=== PATIENT | male | born 1975 | race Caucasian/White ===

== ENCOUNTER 2021-11-28 13:41 | Inpatient (IN) | payer BC, MEDICAID, SELFPAY ==
[2021-11-28 13:44] VITALS: BP 176/116; PULSE 106; RESP 16; O2SAT 98; BMI 35.4
--- NOTE | 2021-11-28 14:06 | ECG_ITS ---
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 Measurements Intervals [place] Rate: 104 P: 32 WV: 152 QRS: 15 QRSD: 105 T: -43 QT: 335 QTc: 441 Interpretive Statements SINUS TACHYCARDIA POSSIBLE ANTERIOR MYOCARDIAL INFARCTION , OF INDETERMINATE AGE [30 ms Q WAVE IN V3/V4, OR R < 0.2 mV IN V4] INFERIOR MYOCARDIAL INFARCTION , OF INDETERMINATE AGE [40+ ms Q WAVE AND/OR ST/T ABNORMALITY IN II/aVF] No previous ECG available for comparison Electronically Signed On 11-28-2021 22:04:38 CDT by Calixto Arizmendi M.D. [id number]
--- NOTE | 2021-11-28 14:06 | XR_ITS ---
WS: [id number] Portable AP upright chest, 11/28/2021 Clinical Data: Hypertension Comparison: None. Findings: No nodules, masses or effusions are seen. The heart is normal. The pulmonary vascularity is not increased. No pneumonia or pneumothorax is seen. XR/XR chest 1V portable [id number] Impression: Negative chest.
--- NOTE | 2021-11-28 14:08 | W.ED.RECABL ---
Documented by User: TAMMY Peace 11/29/21 07:13 HPI - Recheck/Abnormal Lab/Rx General: Chief Complaint: Recheck/Abnormal Lab/Rx Stated Complaint: ABNORMAL EKG Time Seen by Provider: 11/28/21 13:57 History of Present Illness: Patient is a 46-year-old male comes to the ED via EMS for hypertension and abnormal EKG. patient has a past medical history of hypertension and COPD. He is not currently on any oxygen at home. Patient was sent here by his PCP today. He states that he went to get a checkup with his PCP on his COPD. PCP did an EKG on patient and it was an abnormal reading and they sent patient here. He endorses feeling a little bit of chest pressure a couple days ago but it has since resolved. Patient does not have any current chest pain, shortness of breath, nausea, vomiting, fevers. He denies any current symptoms at this time. Review of Systems Const: Denies: fever(s), chills or fatigue Eyes: Denies: change in vision or eye discomfort ENMT: Denies: throat pain, odynophagia, nasal discharge or nasal congestion Card: Denies: chest pain, palpitations, edema, swelling of feet/ankles, dyspnea on exertion or orthopnea Resp: Denies: dyspnea, productive cough or non-productive cough GI: Denies: abdominal pain, nausea, vomiting, diarrhea, constipation or hematochezia : Denies: flank pain, difficulty urinating, dysuria or hematuria Musc: Denies: neck pain, back pain or extremity swelling Skin/Breast: Denies: rash or new lesions Neuro: Denies: headache(s), numbness in extremities or weakness in extremities PFS ED PFSH: Medical History COPD (chronic obstructive pulmonary disease) Hypertension No pertinent family history Physical Exam Const: COMMON NORMALS: no acute distress, patient oriented x3 and alert HENMT: COMMON NORMALS: normocephalic HEAD & SCALP: normocephalic MOUTH: Normal oral and palatal mucosa present THROAT: posterior oropharynx normal and uvula midline Neck/C-Spine: COMMON NORMALS: supple GENERAL: Yes normal visual inspection Resp: COMMON NORMALS: normal respiratory effort, No retractions, No use of accessory muscles and clear to auscultation bilaterally AUSCULTATION: clear to auscultation bilaterally Cardio: COMMON NORMALS: regular rate, regular rhythm, S1 normal heart sound present, S2 normal heart sound present, No gallops present (Cardio), No clicks present (Cardio), No murmurs present (Cardio) and Peripheral pulses 2+ throughout RATE: regular rate RHYTHM: regular rhythm HEART SOUNDS: S1 normal heart sound present and S2 normal heart sound present PERIPHERAL PULSES: Peripheral pulses 2+ throughout GI: COMMON NORMALS: Normal to inspection, nondistended, normoactive bowel sounds present, Soft to palpation, non-tender and no masses PALPATION: Yes Soft to palpation : COMMON NORMALS: Yes no CVA tenderness BLADDER/KIDNEY EXAM: Yes no CVA tenderness Back/Pelvis: COMMON NORMALS: no CVA tenderness Extremity: COMMON NORMALS: normal to inspection Neuro: COMMON NORMALS: patient oriented x3 and moves all extremities SENSORIUM/ORIENTATION: Yes alert Skin: GENERAL SKIN EXAM: dry skin Course Vital Signs: Vital signs: Vital Signs Temperature 98.5 F 11/29/21 03:45 Pulse Rate 88 11/29/21 05:28 Respiratory Rate 14 11/29/21 03:45 Blood Pressure 113/72 11/29/21 03:45 Pulse Oximetry 95 11/29/21 03:45 MDM - Recheck/Abnormal Lab/Rx Lab Data I reviewed the patient's lab results. : 11/28/21 14:06 11/29/21 04:27 Radiology Impressions Chest X-Ray 11/28/21 14:06 Impression: Negative chest. Laboratory Results WBC 7.2 10^3/uL (4.0-10.0) 11/28/21 14:06 RBC 5.49 10^6/uL (4.1-5.3) H 11/28/21 14:06 Hgb 16.4 g/dL (11.7-16.6) 11/28/21 14:06 Hct 51.2 % (42.0-52.0) 11/28/21 14:06 MCV 93.3 fl (80-94) 11/28/21 14:06 MCH 29.9 pg (28.0-34.0) 11/28/21 14:06 MCHC 32.0 g/dL (30.0-36.0) 11/28/21 14:06 RDW 12.9 % (12.1-15.1) 11/28/21 14:06 Plt Count 211 10^3/cmm (130-400) 11/28/21 14:06 MPV 10.8 fL (7.4-10.4) H 11/28/21 14:06 Neut % (Auto) 59.4 % 11/28/21 14:06 Lymph % (Auto) 31.7 % 11/28/21 14:06 [place] % (Auto) 6.5 % 11/28/21 14:06 Eos % (Auto) 1.4 % 11/28/21 14:06 Baso % (Auto) 0.4 % 11/28/21 14:06 Neut # (Auto) 4.30 10^3/uL (1.8-7.7) 11/28/21 14:06 Lymph # (Auto) 2.3 10^3/uL (0.8-4.8) 11/28/21 14:06 [place] # (Auto) 0.5 10^3/uL (0.2-0.9) 11/28/21 14:06 Eos # (Auto) 0.1 10^3/uL (0.0-0.8) 11/28/21 14:06 Baso # (Auto) 0.0 10^3/uL (0.0-0.1) 11/28/21 14:06 Nucleated RBC % (auto) 0 % 11/28/21 14:06 Nucleated RBCs # 0.0 /100WBC 11/28/21 14:06 Sodium 134 mmol/L (136-145) L 11/28/21 15:59 Potassium 4.2 mmol/L (3.5-5.1) 11/28/21 15:59 Chloride 99 mmol/L (98-107) 11/28/21 15:59 Carbon Dioxide 21 mmol/L (22-29) L 11/28/21 15:59 Anion Gap 18.2 (5-19) 11/28/21 15:59 BUN 11 mg/dL (6-20) 11/28/21 15:59 Creatinine 0.7 mg/dL (0.7-1.2) 11/28/21 15:59 GFR Calculation 120.9 mL/min (90-130) 11/28/21 15:59 Glucose 272 mg/dL (65-115) H 11/28/21 15:59 Estimat Average Glucose 189 11/28/21 14:06 Hemoglobin A1c 8.2 % (4.0-6.0) H 11/28/21 14:06 Calculated Osmolality 287 mOsm/kg (285-295) 11/28/21 15:59 Calcium 8.5 mg/dL (8.5-10.5) 11/28/21 15:59 Total Bilirubin 0.6 mg/dL (0.15-1.2) 11/28/21 15:59 AST 40 U/L (0-40) 11/28/21 15:59 ALT 63 U/L (0-41) H 11/28/21 15:59 Alkaline Phosphatase 98 IU/L (40-130) 11/28/21 15:59 Troponin T Baseline 41 ng/L (0-15) H 11/28/21 15:59 Troponin T 120 Minute 45.11 ng/L (0-15) H 11/28/21 18:10 Delta Troponin T 4.11 ABS# (0-10) 11/28/21 18:10 Total Protein 7.1 g/dL (6.6-8.7) 11/28/21 15:59 Albumin 4.4 g/dL (3.5-5.2) 11/28/21 15:59 Globulin 2.7 g/dL (1.3-4.6) 11/28/21 15:59 Discharge Plan Discharge Patient Disposition: Admitted As Inpatient Admit Provider: Rossy Linda Clinical Impression: Abnormal ECG, Elevated troponin, Hypertension, Diabetes, COPD (chronic obstructive pulmonary disease), Obesity Condition: Stable Sign Out Sign Out Data: Patient Sign Out occurred on 11/28/21 at 17:18. Patient's care was discussed, and care was transferred from to TAMMY Limon. Coding Level of Care Code ED Senior Chemist for Chg Fwd Exam Comprehensive Documented by User: TAMMY Limon 11/28/21 20:14 HPI - Recheck/Abnormal Lab/Rx General: Chief Complaint: Recheck/Abnormal Lab/Rx Stated Complaint: ABNORMAL EKG Time Seen by Provider: 11/28/21 13:57 [facility] ED PFSH: Medical History COPD (chronic obstructive pulmonary disease) Hypertension No pertinent family history Course Vital Signs: Vital signs: Vital Signs Temperature 98.5 F 11/29/21 03:45 Pulse Rate 88 11/29/21 05:28 Respiratory Rate 14 11/29/21 03:45 Blood Pressure 113/72 11/29/21 03:45 Pulse Oximetry 95 11/29/21 03:45 MDM - Recheck/Abnormal Lab/Rx Medical Decision Making I assumed care for patient from Jake Talavera PA-C. Patient is a 46-year-old male who was initially seen at his PCP office for routine visit and COPD check. Patient was noted to have extremely elevated high blood pressure (190s/120s) in their office and did mention some vague chest heaviness that he had been having thus EKG was obtained and patient was told it was abnormal and he needed to come to the ED for further evaluation. Upon arrival patient's EKG shows inverted T waves in his inferior leads (no comparisons). He is not currently complaining of chest pain or shortness of breath nor has he complained of these throughout his visit. Family states he has complained of fatigue recently. Patient has no previous cardiac history. He does have risk factors of COPD, HTN, DM, obesity, smoker (quit 1 month ago). Has baseline troponin is 41. Repeat EKG still showing inverted T waves with no other changes when compared to EKG performed earlier. His 2-hour troponin is 45. Patient's heart score at this time is 7 thus I think he would benefit from hospitalization and cardiac rule out. I spoke to hospitalist Dr. Linda who will admit patient. Dr. Pacheco will place admit orders. Lab Data : 11/28/21 14:06 11/29/21 04:27 Radiology Impressions Chest X-Ray 11/28/21 14:06 Impression: Negative chest. Laboratory Results WBC 7.2 10^3/uL (4.0-10.0) 11/28/21 14:06 RBC 5.49 10^6/uL (4.1-5.3) H 11/28/21 14:06 Hgb 16.4 g/dL (11.7-16.6) 11/28/21 14:06 Hct 51.2 % (42.0-52.0) 11/28/21 14:06 MCV 93.3 fl (80-94) 11/28/21 14:06 MCH 29.9 pg (28.0-34.0) 11/28/21 14:06 MCHC 32.0 g/dL (30.0-36.0) 11/28/21 14:06 RDW 12.9 % (12.1-15.1) 11/28/21 14:06 Plt Count 211 10^3/cmm (130-400) 11/28/21 14:06 MPV 10.8 fL (7.4-10.4) H 11/28/21 14:06 Neut % (Auto) 59.4 % 11/28/21 14:06 Lymph % (Auto) 31.7 % 11/28/21 14:06 [place] % (Auto) 6.5 % 11/28/21 14:06 Eos % (Auto) 1.4 % 11/28/21 14:06 Baso % (Auto) 0.4 % 11/28/21 14:06 Neut # (Auto) 4.30 10^3/uL (1.8-7.7) 11/28/21 14:06 Lymph # (Auto) 2.3 10^3/uL (0.8-4.8) 11/28/21 14:06 [place] # (Auto) 0.5 10^3/uL (0.2-0.9) 11/28/21 14:06 Eos # (Auto) 0.1 10^3/uL (0.0-0.8) 11/28/21 14:06 Baso # (Auto) 0.0 10^3/uL (0.0-0.1) 11/28/21 14:06 Nucleated RBC % (auto) 0 % 11/28/21 14:06 Nucleated RBCs # 0.0 /100WBC 11/28/21 14:06 Sodium 134 mmol/L (136-145) L 11/28/21 15:59 Potassium 4.2 mmol/L (3.5-5.1) 11/28/21 15:59 Chloride 99 mmol/L (98-107) 11/28/21 15:59 Carbon Dioxide 21 mmol/L (22-29) L 11/28/21 15:59 Anion Gap 18.2 (5-19) 11/28/21 15:59 BUN 11 mg/dL (6-20) 11/28/21 15:59 Creatinine 0.7 mg/dL (0.7-1.2) 11/28/21 15:59 GFR Calculation 120.9 mL/min (90-130) 11/28/21 15:59 Glucose 272 mg/dL (65-115) H 11/28/21 15:59 Estimat Average Glucose 189 11/28/21 14:06 Hemoglobin A1c 8.2 % (4.0-6.0) H 11/28/21 14:06 Calculated Osmolality 287 mOsm/kg (285-295) 11/28/21 15:59 Calcium 8.5 mg/dL (8.5-10.5) 11/28/21 15:59 Total Bilirubin 0.6 mg/dL (0.15-1.2) 11/28/21 15:59 AST 40 U/L (0-40) 11/28/21 15:59 ALT 63 U/L (0-41) H 11/28/21 15:59 Alkaline Phosphatase 98 IU/L (40-130) 11/28/21 15:59 Troponin T Baseline 41 ng/L (0-15) H 11/28/21 15:59 Troponin T 120 Minute 45.11 ng/L (0-15) H 11/28/21 18:10 Delta Troponin T 4.11 ABS# (0-10) 11/28/21 18:10 Total Protein 7.1 g/dL (6.6-8.7) 11/28/21 15:59 Albumin 4.4 g/dL (3.5-5.2) 11/28/21 15:59 Globulin 2.7 g/dL (1.3-4.6) 11/28/21 15:59 Discharge Plan Discharge Patient Disposition: Admitted As Inpatient Admit Provider: Rossy Linda Clinical Impression: Abnormal ECG, Elevated troponin, Hypertension, Diabetes, COPD (chronic obstructive pulmonary disease), Obesity Condition: Stable Sign Out Sign Out Data: Patient Sign Out occurred on 11/28/21 at 17:18. Patient's care was discussed, and care was transferred from to TAMMY Limon. Coding Level of Care Code ED Senior Chemist for Chg Fwd Exam Comprehensive
[2021-11-28 14:24] LABS: Basophils % 0.4 %; Eosinophils # 0.1 10^3/uL (0.0-0.8); Eosinophils % 1.4 %; Hematocrit 51.2 % (42.0-52.0); Hemoglobin 16.4 g/dL (11.7-16.6); Lymphocytes # 2.3 10^3/uL (0.8-4.8); Lymphocytes % 31.7 %; Mean Corpuscular Hemoglobin 29.9 pg (28.0-34.0); Mean Corpuscular Volume 93.3 fl (80-94); Mean Platelet Volume 10.8 fL (7.4-10.4); Monocytes # 0.5 10^3/uL (0.2-0.9); Monocytes % 6.5 %; Neutrophils % 59.4 %; Nucleated Red Blood Cells % 0 %; Platelet Count 211 10^3/cmm (130-400); Red Blood Count 5.49 10^6/uL (4.1-5.3); Red Cell Distribution Width 12.9 % (12.1-15.1); White Blood Count 7.2 10^3/uL (4.0-10.0)
[2021-11-28 14:35] LABS: Slide Review Slide Review Perform
[2021-11-28 15:48] VITALS: BP 145/112; PULSE 97; RESP 18; O2SAT 96
--- NOTE | 2021-11-28 16:06 | ECG_ITS ---
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 Measurements Intervals [place] Rate: 97 P: 42 IN: 154 QRS: -4 QRSD: 107 T: -49 QT: 359 QTc: 457 Interpretive Statements SINUS RHYTHM POSSIBLE ANTERIOR MYOCARDIAL INFARCTION , OF INDETERMINATE AGE [30 ms Q WAVE IN V3/V4, OR R < 0.2 mV IN V4] INFERIOR MYOCARDIAL INFARCTION , OF INDETERMINATE AGE [40+ ms Q WAVE AND/OR ST/T ABNORMALITY IN II/aVF] MODERATE T-WAVE ABNORMALITY, CONSIDER LATERAL ISCHEMIA [-0.1+ mV T-WAVE IN I/aVL/V5/V6] Compared to ECG 11/28/2021 13:48:36 T-wave abnormality now present Possible ischemia now present Sinus tachycardia no longer present Myocardial infarct finding still present Electronically Signed On 11-28-2021 22:12:23 CDT by Calixto Arizmendi M.D. [id number]
[2021-11-28 16:27] LABS: Troponin(5th) Baseline 41 ng/L (0-15)
[2021-11-28 16:39] LABS: Alanine Aminotransferase 63 U/L (0-41); Albumin Level 4.4 g/dL (3.5-5.2); Alkaline Phosphatase 98 IU/L (40-130); Anion Gap 18.2 (5-19); Aspartate Amino Transferase 40 U/L (0-40); Blood Urea Nitrogen 11 mg/dL (6-20); Calcium 8.5 mg/dL (8.5-10.5); Carbon Dioxide 21 mmol/L (22-29); Chloride 99 mmol/L (98-107); Globulin 2.7 g/dL (1.3-4.6); Glomerular Filtration Rate 120.9 mL/min (90-130); Glucose 272 mg/dL (65-115); Osmolality Calculated 287 mOsm/kg (285-295); Potassium 4.2 mmol/L (3.5-5.1); Sodium 134 mmol/L (136-145); Total Bilirubin 0.6 mg/dL (0.15-1.2); Total Protein 7.1 g/dL (6.6-8.7)
[2021-11-28 18:36] LABS: Troponin 5 2HR 45.11 ng/L (0-15)
[2021-11-28 18:39] LABS: Troponin 5 2HR Delta 4.11 ABS# (0-10)
--- NOTE | 2021-11-28 20:06 | ECG_ITS ---
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 Measurements Intervals [place] Rate: P: MT: QRS: QRSD: T: QT: QTc: Interpretive Statements Sinus rhythm Unusual R wave progression, consider old anterior wall myocardial infarction Prior inferior wall ID. T wave changes laterally, consider lateral ischemia ATYPICAL ECG WARNING: DATA QUALITY MAY AFFECT INTERPRETATION Compared to ECG 11/28/2021 15:34:02 No change Electronically Signed On 11-30-2021 16:59:27 CDT by Mason Couch M.D. [id number]
[2021-11-28 21:17] VITALS: BP 132/94; PULSE 108; O2SAT 94
[2021-11-28 22:23] VITALS: BP 132/94; PULSE 105; RESP 18; O2SAT 95
--- NOTE | 2021-11-28 23:03 | P.HP_ITS ---
Providers/Chief Complaint Admitting Physician: Rossy Linda MD Primary Care Provider: JOHANA Stafford Chief Complaint: chest pain History of Present Illness Juan Hernandez is a 46 year old male with h/o HTN, NIDDM, COPD and tobacco use who was seen at clinic with chest pressure. Patient states his BP was high and he was told he had an abnormal EKG and sent to ED. Patient describes the pressure as substernal, lasting only a couple of minutes. No radiation. Associated with some dyspnea, however, states he also has dyspnea sometimes with exertion and has COPD. He is not clear about using his meds regularly and does not know names or doses. Patient evaluated in ED- no acute EKG changes- mild elevation of troponin. Patient is chest pain free. He denies prior h/o similar pressure in his chest. No known h/o CAD. Patient noted to have elevated BP and elevated blood sugars as well. He does not monitor his blood sugar. Does not take insulin. Patient denies orthopnea, PND. No leg swelling. Patient admitted for further monitoring and management Review of Systems General: Reports: 10 or more systems reviewed and unremarkable except in HPI and below Const: Denies: fever(s), chills, body aches, change in appetite, change in weight or diaphoresis ENMT: Denies: throat pain or hoarseness Card: Reports: chest pain (as noted in HPI) and dyspnea on exertion; Denies: palpitations or syncope Resp: Reports: dyspnea; Denies: productive cough, wheezing or hemoptysis GI: Denies: abdominal pain, nausea, vomiting or constipation : Denies: urinary frequency or urinary urgency Musc: Denies: joint pain, joint swelling or joint stiffness Skin/Breast: Denies: rash or pruritus Neuro: Denies: frequent falls or dizziness Psych: Reports: anxiety and depression Endo: Reports: tired all the time Nico/Lymph: Denies: easy bruising or enlarged lymph nodes Medications/Allergies Home Medications Medication Instructions Recorded Confirmed Last Taken Type acetaminophen 500 mg tablet 1,000 mg PO Q6H PRN 11/28/21 11/28/21 Unknown History albuterol sulfate 90 mcg/actuation 2 puff INHALATION Q4H PRN 11/28/21 11/28/21 Unknown History aerosol inhaler atorvastatin 40 mg tablet 40 mg PO QAM 11/28/21 11/28/2111/27/22 History cholecalciferol (vitamin D3) 125 10,000 unit PO DAILY 11/28/21 11/28/21 Unknown History mcg (5,000 unit) tablet (Vitamin D3) docusate sodium 100 mg capsule 100 mg PO DAILY 11/28/21 11/28/21 Unknown History (Stool Softener) fiber 3 cap PO DAILY 11/28/21 11/28/21 Unknown History glipizide 10 mg tablet 10 mg PO BID 11/28/21 11/28/21 11/27/21 History lisinopril 20 mg tablet 20 mg PO QAM 11/28/21 11/28/21 11/27/21 History metformin 1,000 mg tablet 1,000 mg PO BID 11/28/21 11/28/21 11/27/21 History Allergies Allergy/AdvReac Type Severity Reaction Status Date / Time No Known Allergies Allergy Verified 11/28/21 14:58 PFSH Acute 2 PFSH: Medical History COPD (chronic obstructive pulmonary disease) Hypertension No pertinent family history Vitals/I&O/Wt Last Vital Signs Pulse 105 H 11/28/21 22:23 Resp 18 11/28/21 22:23 BP 132/94 11/28/21 22:23 Pulse Ox 95 11/28/21 22:23 Weight last 48 hrs Weight 112.037 kg Physical Exam Const: GENERAL APPEARANCE: cooperative, comfortable and well developed; not in distress HENMT: HEAD & SCALP: normal to inspection, normocephalic and atraumatic Neck/C-Spine: GENERAL: Yes normal visual inspection, Yes trachea midline and No anterior neck swelling Chest: CHEST: Yes Symmetrical chest wall rise and No tenderness Resp: EFFORT & INSPECTION: Yes able to speak in complete sentences, Yes symmetric chest movement, No respiratory distress and No audible wheezes Cardio: RATE: regular rate RHYTHM: regular rhythm GI: INSPECTION: Yes normal to inspection PALPATION: Yes Soft to palpation and No Tenderness to palpation present (GI) Extremity: GENERAL: Yes normal exam except as noted, No calf tenderness, No clubbing and No edema Neuro: SENSORIUM/ORIENTATION: Yes alert, Yes oriented to person, Yes oriented to place and Yes oriented to time CRANIAL NERVES: Yes CN normal except as noted SPEECH: speech normal GAIT: Yes Normal gait present MOTOR EXAM: 5 motor strength present throughout, no tremor noted, Normal motor muscle tone present throughout and Motor abnormalities not present Psych: APPEARANCE: Yes grossly normal ATTITUDE: Yes calm ACTIVITY/MOTOR BEHAVIOR: Yes appropriate eye contact SPEECH: Yes normal speech Skin: GENERAL SKIN EXAM: rashes and/or lesions noted and decreased turgor Data : 11/28/21 14:06 11/28/21 15:59 A&P Assessment and plan (1) Chest pain: Patient presents with brief non sustained chest pressure. Risk factors for CAD include obesity, uncontrolled HTN and diabetes, male and tobacco use. Baseline troponin 41, 2 hour troponin 45 with delta of 4.11 EKG with non specific inferior changes, no acute ST elevation/changes. Currently in no distress, no complaints of chest pain, appears to be atypical Telemetry ECHO Aspirin Status: Acute (2) Uncontrolled hypertension: Resume lisinopril May need to add second BP med if continues to be elevated Status: Acute (3) Diabetes: Blood sugar 272 on arrival. Hold glipizide and metformin Diabetic diet, SSI A1C Status: Acute (4) COPD (chronic obstructive pulmonary disease): Uses albuterol inhaler prn. On RA Status: Acute Attestations Medical Necessity Statement*: Patient with risk factors for CAD with h/o HTN, DM and tobacco use placed in observation for further monitoring and management Coding Level of Care Code Acute Missile Inspector Preflight for Dominickg Fwd History Expanded Problem Focused Exam Expanded Problem Focused Medical Decision Making Moderate Complexity Diagnoses Chest pain R07.9 Uncontrolled hypertension I10 Diabetes E11.9 COPD (chronic obstructive pulmonary disease) J44.9
[2021-11-28 23:33] VITALS: BP 154/104; PULSE 103; RESP 22; TEMP 36.6; O2SAT 95
[2021-11-28 23:34] VITALS: PULSE 103
[2021-11-29] VITALS (8 sets, daily range): BP systolic 113–143; BP diastolic 72–97; PULSE 88–104; RESP 14–18; TEMP 36.4–36.9; O2SAT 94–96
[2021-11-29] MEDS: aspirin 81 mg EC Tablet PO ×2 (00:20→08:00)
[2021-11-29 05:38] LABS: Alanine Aminotransferase 65 U/L (0-41); Albumin Level 4.3 g/dL (3.5-5.2); Alkaline Phosphatase 96 IU/L (40-130); Blood Urea Nitrogen 12 mg/dL (6-20); Carbon Dioxide 23 mmol/L (22-29); Chloride 98 mmol/L (98-107); Globulin 2.3 g/dL (1.3-4.6); Glomerular Filtration Rate 103.6 mL/min (90-130); Glucose 310 mg/dL (65-115); Osmolality Calculated 288 mOsm/kg (285-295); Sodium 133 mmol/L (136-145); Total Bilirubin 0.5 mg/dL (0.15-1.2); Total Protein 6.6 g/dL (6.6-8.7)
[2021-11-29 05:39] LABS: Chol HDL Ratio 4.79 mg/dL (1.0-5.00); Cholesterol 134 mg/dL (0-200); HDL Cholesterol 28 mg/dL (60-100); LDL Cholesterol Calculated 59 mg/dL (50-129); LDL HDL Ratio 2.11 RATIO (0.00-3.22); Triglycerides 233 mg/dL (0-150)
[2021-11-29 05:50] LABS: Anion Gap 16.7 (5-19); Aspartate Amino Transferase 54 U/L (0-40); Potassium 4.7 mmol/L (3.5-5.1)
[2021-11-29] MEDS: atorvastatin 40 mg Tablet PO (06:04)
[2021-11-29] MEDS: lisinopril 20 mg Tablet PO (06:04)
[2021-11-29 06:52] LABS: Glucose Point of Care 293 mg/dL (70-110)
[2021-11-29 06:58] LABS: Estmated Average Glucose 189; Hemoglobin A1C 8.2 % (4.0-6.0)
[2021-11-29] MEDS: insulin lispro 100 unit/1 mL SUBCUT ×3 (07:56→18:03)
[2021-11-29] MEDS: nicotine 21 mg Patch 1 PATCH TRANSDERMA (08:00)
[2021-11-29] MEDS: docusate sodium 100 mg Capsule PO (08:00)
[2021-11-29] MEDS: famotidine 20 mg Tablet PO ×2 (08:00→18:04)
--- NOTE | 2021-11-29 08:43 | CT_ITS ---
WS: [id number] CT LUMBAR SPINE, noncontrast. HISTORY: LOWER BACK PAIN TECHNIQUE: Contiguous 2.5 mm axial imaging are performed. Sagittal and coronal reformats are submitte d and reviewed. [facility] CT [email or web address] at least one of these dose optimization techni ques: automated exposure control; mA and/or kV adjustment per patient size (includes targeted exams w here dose is matched to clinical indication); or iterative reconstruction. IV contrast: None DLP: 2547.31 mGy.cm COMPARISON: None available. Posterior lumbar alignment is normal. No fractures. No pars defects. There is a large osteophyte exte nding posteriorly between L5 and S1. Transverse processes are intact. No destructive bone lesion. Deion y mild sclerosis and degenerative changes at the SI joints. Mild aorta atherosclerotic calcification. L1-2: Mild diffuse disc bulging without a focal protrusion or stenosis. L2-3: Mild annular disc bulging without focal protrusion or stenosis. L3-4: Mild annular disc bulging. Very mild asymmetry in the LEFT foramen. Suspect there is probably a cyst very small LEFT foraminal disc protrusion but there is no contact on the nerve roots. Mild face t arthritis. L4-5: Very mild annular disc bulging with mild encroachment upon the ventral thecal sac. Very shallow central disc protrusion without displacement of the nerve roots. Mild bilateral facet arthritis. No high-grade stenosis. Very slight encroachment into the subarticular recesses. L5-S1: There is a large curvilinear osteophyte extending posteriorly between L5 and S1. This dense ca lcified osteophyte is encroaching upon the ventral thecal sac and deforming the thecal sac. Osteophyt e is abutting the S1 nerve roots and displacing the nerve roots posteriorly into the lateral recesses . There is encroachment into the proximal neural foramen, LEFT greater than RIGHT. There is significa nt central, bilateral subarticular recess and mild foraminal stenosis. The dense osteophyte extends 2 .5 cm transversely and posteriorly by 1.1 cm. Vacuum disc phenomenon and mild narrowing at L5-S1. CT/CT lumbar spine wo con* [id number] IMPRESSION: 1. There is a large dense osteophyte extending posteriorly between L5 and S1 m easuring 2.5 cm transversely and extending posteriorly by 1.1 cm. This dense os teophyte contacts the thecal sac and displaces the S1 nerve roots bilaterally. Osteophytic burden extends into the proximal neural foramen. There is also mild bilateral foraminal stenosis. 2. Moderate degenerative disc disease at L5-S1.
--- NOTE | 2021-11-29 09:26 | PM.CONSULT ---
Providers/Reason For Consult Consulting Physician/Specialty*: Dr. Downey, Cardiology Reason for Consult*: Chest pain Attending Physician: Dheeraj Bains MD Primary Care Provider: JOHANA Stafford History of Present Illness History of Present Illness Juan Hernandez is a 46 year old male Review of Systems General: Reports: 10 or more systems reviewed and unremarkable except in HPI and below Const: Denies: fever(s), chills, body aches, change in appetite, change in weight or diaphoresis ENMT: Denies: throat pain or hoarseness Card: Reports: chest pain (as noted in HPI) and dyspnea on exertion; Denies: palpitations or syncope Resp: Reports: dyspnea; Denies: productive cough, wheezing or hemoptysis GI: Denies: abdominal pain, nausea, vomiting or constipation : Denies: urinary frequency or urinary urgency Musc: Denies: joint pain, joint swelling or joint stiffness Skin/Breast: Denies: rash or pruritus Neuro: Denies: frequent falls or dizziness Psych: Reports: anxiety and depression Endo: Reports: tired all the time Nico/Lymph: Denies: easy bruising or enlarged lymph nodes Medications/Allergies Home Medications Medication Instructions Recorded Confirmed Last Taken Type acetaminophen 500 mg tablet 1,000 mg PO Q6H PRN 11/28/21 11/28/21 Unknown History albuterol sulfate 90 mcg/actuation 2 puff INHALATION Q4H PRN 11/28/21 11/28/21 Unknown History aerosol inhaler atorvastatin 40 mg tablet 40 mg PO QAM 11/28/21 11/28/21 11/27/21 History cholecalciferol (vitamin D3) 125 10,000 unit PO DAILY 11/28/21 11/28/21 Unknown History mcg (5,000 unit) tablet (Vitamin D3) docusate sodium 100 mg capsule 100 mg PO DAILY 11/28/21 11/28/21 Unknown History (Stool Softener) fiber 3 cap PO DAILY 11/28/21 11/28/21 Unknown History glipizide 10 mg tablet 10 mg PO BID 11/28/21 11/28/21 11/27/21 History lisinopril 20 mg tablet 20 mg PO QAM 11/28/21 11/28/21 11/27/21 History metformin 1,000 mg tablet 1,000 mg PO BID 11/28/21 11/28/21 11/27/21 History Allergies Allergy/AdvReac Type Severity Reaction Status Date / Time No Known Allergies Allergy Verified 11/28/21 14:58 Current Medications Generic Name Dose Route Start Last Admin Trade Name Lauri PRN Reason Stop Dose Admin Aspirin 81 mg 11/29/21 09:00 11/29/21 08:00 Aspirin 81 Mg Ec Tablet PO 81 mg DAILY GUS Administration Atorvastatin Calcium 40 mg 11/29/21 06:00 11/29/21 06:04 Atorvastatin 40 Mg Tablet PO 40 mg QAM GUS Administration Docusate Sodium 100 mg 11/29/21 09:00 11/29/21 08:00 Docusate Sodium 100 Mg Capsule PO 100 mg DAILY GUS Administration Enoxaparin Sodium 40 mg 11/28/21 21:45 11/29/21 00:18 Enoxaparin 40 Mg/0.4 Ml Syringe SUBCUT Not Given Q24H GUS Famotidine 20 mg 11/29/21 09:00 11/29/21 08:00 Famotidine 20 Mg Tablet PO 20 mg BID GUS Administration Insulin Human Lispro 0 unit 11/29/21 08:00 11/29/21 07:56 Insulin Lispro 100 Unit/1 Ml SUBCUT 10 unit TIDWM GUS Administration Protocol Lisinopril 20 mg 11/29/21 06:00 11/29/21 06:04 Lisinopril 20 Mg Tablet PO 20 mg QAM GUS Administration Nicotine 1 patch 11/29/21 09:00 11/29/21 08:00 Nicotine 21 Mg Patch TRANSDERMA 1 patch DAILY GUS Administration PFSH Acute PFSH: Medical History COPD (chronic obstructive pulmonary disease) Hypertension No pertinent family history Vitals/I&O/Wt Last Vital Signs Temp 97.6 F 11/29/21 08:16 Pulse 94 11/29/21 08:16 Resp 18 11/29/21 08:16 BP 139/97 11/29/21 08:16 Pulse Ox 95 11/29/21 08:16 11/28/21 11/29/21 11/29/21 22:59 06:59 14:59 Intake Total 480 / 480 10 / 10 Balance 480 / 480 10 / 10 Weight last 48 hrs Weight 247 lb Physical Exam Narrative: GENERAL: Averagely built and averagely nourished in no acute distress HEENT: Extraocular movement intact. Pupils equal round reactive to light. No pallor or icterus. NECK: central trachea, [] JVD, [] abdominojugular reflex. No carotid bruit. CARDIOVASCULAR SYSTEM: S1-S2 regular. No S3 or S4 present. [No murmur rubs or gallops.] RESPIRATORY SYSTEM: Chest clear to auscultation. No wheezes rhonchi or rubs heard. [] No use of accessory muscles. ABDOMEN: Soft, nontender and nondistended. Normal bowel sounds present. No hepatosplenomegaly appreciated. [] EXTREMITIES: No cyanosis or clubbing. [No edema]. No signs of chronic venous insufficiency. 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 No focal neurological deficits. Cranial nerves intact. [] SKIN: Normal turgor and temperature. No breakdown, rash or nail changes noted. [] PSYCH: Normal insight and judgment. No suicidal or homicidal ideations. Data : 11/28/21 14:06 11/29/21 04:27 Other Labs: Baseline troponin T 41 at 2 hours 45 minutes 6 hours 40. Lipid panel with total cholesterol 134, triglyceride 233, LDL 59, HDL 28 Hemoglobin A1c 8.2. Other data: EKG showed sinus rhythm, normal axis. Q waves and T wave inversions lead noted in lead II, 3, aVF.T wave inversion in V4 to V6. Poor anterior R wave progression. Inferior NC of indeterminate age. T wave abnormality consider lateral ischemia. Chest x-ray with no acute cardiopulmonary abnormality. A&P Assessment and plan (1) Chest pain: Status: Acute (2) Hypertension: Status: Acute (3) Diabetes: On oral hypoglycemics metformin and glipizide at home. Hemoglobin A1c 8.2. 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
[2021-11-29 11:02] LABS: Glucose Point of Care 291 mg/dL (70-110)
--- NOTE | 2021-11-29 11:17 | P.PN_ITS ---
Subjective Subjective: Patient was seen and examined this morning, he was complaining of pressure-like chest pain, which lasted around 5 to 10 seconds, yesterday, he has also complaining of shortness of breath, which he thinks could be related to his longstanding chronic smoking history, patient is also complaining of significant lower back pain Particularly on standing for prolonged time, relieved by bending forward. Denies any other complaint. Medications: Medication Review Details: Generic Name Dose Route Start Last Admin Trade Name Lauri PRN Reason Stop Dose Admin Aspirin 81 mg 11/29/21 09:00 11/29/21 08:00 Aspirin 81 Mg Ec Tablet PO 81 mg DAILY GUS Administration Atorvastatin Calci um 40 mg 11/29/21 06:00 11/29/21 06:04 Atorvastatin 40 Mg Tablet PO 40 mg QAM GUS Administration Docusate Sodium 100 mg 11/29/21 09:00 11/29/21 08:00 Docusate Sodium 100 Mg Capsule PO 100 mg DAILY GUS Administration Enoxaparin Sodium 40 mg 11/28/21 21:45 11/29/21 00:18 Enoxaparin 40 Mg /0.4 Ml Syringe SUBCUT Not Given Q24H GUS Famotidine 20 mg 11/29/21 09:00 11/29/21 08:00 Famotidine 20 Mg Tablet PO 20 mg BID GUS Administration Insulin Human Lisp ro 0 unit 11/29/21 08:00 11/29/21 07:56 Insulin Lispro 1 00 Unit/1 Ml SUBCUT 10 unit TIDWM GUS Administration Protocol Lisinopril 20 mg 11/29/21 06:00 11/29/21 06:04 Lisinopril 20 Mg Tablet PO 20 mg QAM GUS Administration Nicotine 1 patch 11/29/21 09:00 11/29/21 08:00 Nicotine 21 Mg P atch TRANSDERMA 1 patch DAILY GUS Administration Vitals/I&O/Wt Last Vital Signs Temp 97.6 F 11/29/21 08:16 Pulse 94 11/29/21 08:16 Resp 18 11/29/21 08:16 BP 139/97 11/29/21 08:16 Pulse Ox 95 11/29/21 08:16 11/28/21 11/29/21 11/29/21 22:59 06:59 14:59 Intake Total 480 / 480 10 / 10 Balance 480 / 480 10 / 10 Weight last 48 hrs Weight 112.037 kg Physical Exam Const: COMMON NORMALS: patient oriented x3 HENMT: COMMON NORMALS: normocephalic and atraumatic HEAD & SCALP: normocephalic and atraumatic Chest: CHEST: Yes Symmetrical chest wall rise Resp: COMMON NORMALS: normal respiratory effort and clear to auscultation bilaterally EFFORT & INSPECTION: Yes symmetric chest movement AUSCULTATION: clear to auscultation bilaterally Cardio: COMMON NORMALS: regular rate, regular rhythm, S1 normal heart sound present, S2 normal heart sound present, No gallops present (Cardio), No murmurs present (Cardio), No rub (Cardio) and Peripheral pulses 2+ throughout RATE: regular rate RHYTHM: regular rhythm HEART SOUNDS: S1 normal heart sound present and S2 normal heart sound present PERIPHERAL PULSES: Peripheral pulses 2+ throughout GI: COMMON NORMALS: Normal to inspection, nondistended, normoactive bowel sounds present, Soft to palpation, non-tender, No hepatosplenomegaly present and no masses AUSCULTATION: Yes normoactive bowel sounds PALPATION: Yes Soft to palpation and Yes No hepatosplenomegaly present RECTAL EXAM: Yes deferred Extremity: COMMON NORMALS: no clubbing, cyanosis or edema and no pedal edema Neuro: COMMON NORMALS: patient oriented x3 Data : 11/28/21 14:06 11/29/21 04:27 A&P Assessment and plan (1) Chest pain: Status: Acute (2) Uncontrolled hypertension: Status: Acute (3) Diabetes: Status: Acute (4) COPD (chronic obstructive pulmonary disease): Uses albuterol inhaler prn. On RA Status: Acute Plan 46-year-old male with past medical history of hypertension diabetes, dyslipidemia, chronic smoking (2 pack a day for close to 35 years, obesity came in with chief complaint of chest tightness, and elevated blood pressure. Assessment: Typical cardiac chest pain: Risk factors include hypertension diabetes, dyslipidemia, chronic smoking (2 pack a day for close to 35 years) Obesity. Troponin trend: 41, 45 , 40 EKG: Sinus tachycardia. Q waves and T wave inversions lead noted in lead II, 3, aVF.T wave inversion in V4 to V6.? Poor anterior R wave progression.? Inferior FL of indeterminate age.? T wave abnormality consider lateral ischemia. 2D echo: Normal LV cavity size, moderately decreased LV systolic function, LVEF at 40%, moderate global LV hypokinesis, Grade 2 diastolic dysfunction. Lipid profile:T , total cholesterol 134, LDL 59, HDL 28 Continue aspirin and statin #Diabetes: Hemoglobin A1c He is on metformin and glipizide at home (currently on hold in hospital) Lantus 10 units subcu daily SSI FSG Carb consistent diet #Hypertension: On lisinopril #Lower back pain:; CT lumbar spine without contrast: large dense osteophyte extending posteriorly between L5 and S1 measuring 2.5 cm transversely and extending posteriorly by 1.1 cm. This dense osteophyte contacts the thecal sac and displaces the S1 nerve roots bilaterally. Osteophytic burden extends into the proximal neural foramen. There is also mild bilateral foraminal stenosis. Moderate degenerative disc disease at L5-S1. Orthopedic on board: Currently conservative management physical therapy, pain management.Outpatient follow-up. Attestations Medical Necessity Statement*: Patient needs to be in hospital for chest pain management awaiting cardiac cath. Time Spent in Patient Care: Greater than 35 minutes (>than 50% of time spent in counselling and/or direct pt care on unit) . 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
--- NOTE | 2021-11-29 11:22 | PC.NURSE ---
Pt and family are present and are wanting to know the results of the tests the pt has undergone today. Dr. Bains was made aware of family request via [employer].
[2021-11-29] MEDS: acetaminophen 500 mg Tablet 1000 MG PO (12:47)
--- NOTE | 2021-11-29 14:00 | USCV_ITS ---
Juan Hernandez Age: 46 Gender: M : 1975 Exam Date: 11/29/2021 01:45 Ordering Phys: Rossy Linda MD Technologist: AGNES Exam Location: [facility] Indication: CHEST PAIN BP: / HR: 92 Rhythm: Sinus Technical Quality: Adequate MEASUREMENTS (Male / Female) Normal Values 2D ECHO LV Diastolic Diameter PLAX 5.9 cm 4.2 - 5.9 / 3.9 - 5.3 cm LV Systolic Diameter PLAX 5.1 cm IVS Diastolic Thickness 0.9 cm 0.6 - 1.0 / 0.6 - 0.9 cm IVS Systolic Thickness 1.6 cm LVPW Diastolic Thickness 1.3 cm 0.6 - 1.0 / 0.6 - 0.9 cm LVPW Systolic Thickness 1.1 cm LVOT Diameter 2.8 cm LV Ejection Fraction 2D Teich 28.2 % LV Ejection Fraction MOD 2C 37.4 % LV Ejection Fraction 2C AL 35.7 % LA Diameter 3.6 cm LA Width 3.0 cm LA Height 6.1 cm RA Width 3.4 cm RA Height 3.5 cm Aorta at Sinotubular Diameter 2.6 cm M-MODE Aortic Annulus Diameter 2.4 cm LA Ao Ratio MM 1.4 MV E Point Septal Separation 2.7 cm DOPPLER AV Peak Velocity 105.3 cm/s LVOT Peak Velocity 57.0 cm/s AV Area Cont Eq vti 3.8 cm squared AV Area Cont Eq pk 3.4 cm squared MV Peak Velocity 74.0 cm/s MV Area PHT 5.0 cm squared Mitral E to A Ratio 0.9 MV E' Velocity 61.0 cm/s Mitral E to LV E' Septal Ratio 8.9 TR Peak Velocity 64.4 cm/s TR Peak Gradient 1.7 mmHg TR Mean Velocity 45.0 cm/s TR Mean Gradient 0.9 mmHg TR Velocity Time Integral 12.0 cm Right Atrial Pressure 10.0 mmHg Pulmonary Artery Systolic Pressu 11.7 mmHg PV Peak Velocity 97.0 cm/s RV Acceleration Time 0.1 s RV Ejection Time 0.3 s RV AcT/ET 0.4 FINDINGS Left Ventricle Normal left ventricular cavity size. Moderately decreased left ventricular systolic function. Left ventricular ejection fraction is estimated at 40 %. Moderate global left ventricular hypokinesis. Grade II diastolic dysfunction, moderately elevated filling pressures. No evidence of left ventricular apical thrombus. Right Ventricle Normal right ventricular size and systolic function. RVSP could not be calculated due to incomplete tricuspid regurgitation velocity profile. Right Atrium Normal right atrial size. Left Atrium Mildly increased left atrial size. Mitral Valve Mildly thickened mitral valve. Trace mitral valve regurgitation. Aortic Valve Aortic valve not well visualized. Probably tricuspid aortic valve. No aortic valve stenosis. No aortic valve regurgitation. Tricuspid Valve Structurally normal tricuspid valve. No tricuspid valve regurgitation. Pulmonic Valve Pulmonic valve not well visualized. No pulmonary valve stenosis. Trace pulmonary valve regurgitation. Pericardium No pericardial effusion. Aorta Normal size aortic root and proximal ascending aorta. CONCLUSIONS 1. Normal left ventricular cavity size. Moderately decreased left ventricular systolic function. Left ventricular ejection fraction is estimated at 40 %. Moderate global left ventricular hypokinesis. Grade II diastolic dysfunction, moderately elevated filling pressures. No evidence of left ventricular apical thrombus. 2. Mildly increased left atrial size. 3. No prior similar studies to compare. Cheryl Downey MD (Electronically Signed) Final Date: 29 November 2021 18:02 S
[2021-11-29] MEDS: perflutren protein-a microsphr 0.22 mg/mL SDV 3 mL IV (14:05)
--- NOTE | 2021-11-29 17:03 | PM.CONSULT ---
Providers/Reason For Consult Consulting Physician/Specialty*: Orthopedic spine Reason for Consult*: Back pain with leg weakness Attending Physician: Dheeraj Bains MD Primary Care Provider: JOHANA Stafford History of Present Illness History of Present Illness Juan Hernandez is a 46 year old male who was admitted to [facility] for cardiac work-up and medical management. Orthopedic spine was consulted due to increased back and leg pain. Patient describes progressive worsening of his low back and leg weakness over the last 6 months. 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 He describes 70% low back pain with 30% leg pain with both legs being equal. He states he can only walk a short distance of approximately 5o/100 feet before he has to sit down because of the pain /weakness. Prolonged standing bending twisting activities make his back much worse. Rest is only thing that gives him some temporary relief. He describes spasming pain in his legs with movement. He denies any loss of bowel or bladder control. He has not been through any physical therapy or injections at the pain clinic. He ranks the pain as 7-8 out of 10 on the pain scale at its worst. An extensive review of the patient's past medical history, surgical history, allergies, medications, family history, social history, and review of systems was completed Review of Systems General: Reports: 10 or more systems reviewed and unremarkable except in HPI and below Const: Denies: fever(s), chills, body aches, change in appetite, change in weight or diaphoresis ENMT: Denies: throat pain or hoarseness Card: Reports: chest pain (as noted in HPI) and dyspnea on exertion; Denies: palpitations or syncope Resp: Reports: dyspnea; Denies: productive cough, wheezing or hemoptysis GI: Denies: abdominal pain, nausea, vomiting or constipation : Denies: urinary frequency or urinary urgency Musc: Denies: joint pain, joint swelling or joint stiffness Skin/Breast: Denies: rash or pruritus Neuro: Denies: frequent falls or dizziness Psych: Reports: anxiety and depression Endo: Reports: tired all the time Nico/Lymph: Denies: easy bruising or enlarged lymph nodes Medications/Allergies Home Medications Medication Instructions Recorded Confirmed Last Taken Type acetaminophen 500 mg tablet 1,000 mg PO Q6H PRN 11/28/21 11/28/21 Unknown History albuterol sulfate 90 mcg/actuation 2 puff INHALATION Q4H PRN 11/28/21 11/28/21 Unknown History aerosol inhaler atorvastatin 40 mg tablet 40 mg PO QAM 11/28/21 11/28/21 11/27/21 History cholecalciferol (vitamin D3) 125 10,000 unit PO DAILY 11/28/21 11/28/21 Unknown History mcg (5,000 unit) tablet (Vitamin D3) docusate sodium 100 mg capsule 100 mg PO DAILY 11/28/21 11/28/21 Unknown History (Stool Softener) fiber 3 cap PO DAILY 11/28/21 11/28/21 Unknown History glipizide 10 mg tablet 10 mg PO BID 11/28/21 11/28/21 11/27/21 History lisinopril 20 mg tablet 20 mg PO QAM 11/28/21 11/28/21 11/27/21 History metformin 1,000 mg tablet 1,000 mg PO BID 11/28/21 11/28/21 11/27/21 History Allergies Allergy/AdvReac Type Severity Reaction Status Date / Time No Known Allergies Allergy Verified 11/28/21 14:58 Current Medications Generic Name Dose Route Start Last Admin Trade Name Freq PRN Reason Stop Dose Admin Acetaminophen 1,000 mg 11/28/21 21:42 11/29/21 12:47 Acetaminophen 500 Mg Tablet PO 1,000 mg Q6H PRN Administration Pain Aspirin 81 mg 11/29/21 09:00 11/29/21 08:00 Aspirin 81 Mg Ec Tablet PO 81 mg DAILY GUS Administration Atorvastatin Calcium 40 mg 11/29/21 06:00 11/29/21 06:04 Atorvastatin 40 Mg Tablet PO 40 mg QAM GUS Administration Docusate Sodium 100 mg 11/29/21 09:00 11/29/21 08:00 Docusate Sodium 100 Mg Capsule PO 100 mg DAILY GUS Administration Enoxaparin Sodium 40 mg 11/28/21 21:45 11/29/21 00:18 Enoxaparin 40 Mg/0.4 Ml Syringe SUBCUT Not Given Q24H GUS Famotidine 20 mg 11/29/21 09:00 11/29/21 08:00 Famotidine 20 Mg Tablet PO 20 mg BID GUS Administration Insulin Human Lispro 0 unit 11/29/21 08:00 11/29/21 12:43 Insulin Lispro 100 Unit/1 Ml SUBCUT 10 unit TIDWM GUS Administration Protocol Lisinopril 20 mg 11/29/21 06:00 11/29/21 06:04 Lisinopril 20 Mg Tablet PO 20 mg QAM GUS Administration Nicotine 1 patch 11/29/21 09:00 11/29/21 08:00 Nicotine 21 Mg Patch TRANSDERMA 1 patch DAILY GUS Administration PFSH Acute PFSH: Medical History COPD (chronic obstructive pulmonary disease) Hypertension No pertinent family history Vitals/I&O/Wt Last Vital Signs Temp 97.5 F L 11/29/21 15:26 Pulse 92 11/29/21 15:26 Resp 18 11/29/21 15:26 BP 126/88 11/29/21 15:26 Pulse Ox 95 11/29/21 15:26 11/29/21 11/29/21 11/29/21 06:59 14:59 22:59 Intake Total 480 / 480 130 / 130 Balance 480 / 480 130 / 130 Weight last 48 hrs Weight 247 lb Physical Exam Narrative: Patient presents with slow antalgic l gait. Demonstrates raising up onto heels and toes with difficulty. Exhibits normal coordination and normal stability. Moderate palpatory or percussion pain throughout the paraspinous musculature of the thoracolumbar spine. No obvious curvature in the forward bend test. No obvious muscle wasting. Examination reveals normal alignment, decreased functional range of motion of the thoracolumbar spine with Flexion to 35 degrees, extends 15 degrees, laterally bends 20 degrees symmetrically. Normal sensation to light touch through all dermatomal layers. Normal sensation light touch down both lower extremities with 4/5 motor strength throughout all motor groups. No palpable pain over the SI joints bilaterally. Negative Terrell and Fabere sign. Positive straight leg raise bilaterally. Skin is clear warm with normal sensation to light touch calves are supple with no medial thigh tenderness negative Homans' sign. No palpable lymphadenopathy bilaterally. Reflexes are 2+ and symmetric about the knees and Achilles. No hyperreflexia or clonus. Downgoing Babinski's bilaterally. Dorsalis pedis and posterior tibial pulses are 2+. No palpable edema bilaterally. HENMT: COMMON NORMALS: normocephalic and atraumatic HEAD & SCALP: normocephalic and atraumatic Resp: COMMON NORMALS: normal respiratory effort Cardio: COMMON NORMALS: regular rate and regular rhythm RATE: regular rate RHYTHM: regular rhythm GI: COMMON NORMALS: non-tender : COMMON NORMALS: Yes no CVA tenderness BLADDER/KIDNEY EXAM: Yes no CVA tenderness Back/Pelvis: COMMON NORMALS: no CVA tenderness Neuro: COMMON NORMALS: moves all extremities Psych: COMMON NORMALS: mental status grossly normal and cooperative Data : 11/28/21 14:06 11/29/21 04:[address]: My impression: CT/CT lumbar spine wo con* [id number] IMPRESSION: ? 1.? There is a large dense osteophyte extending posteriorly between L5 and S1 measuring 2.5 cm transversely and extending posteriorly by 1.1 cm. This dense osteophyte contacts the thecal sac and displaces the S1 nerve roots bilaterally. Osteophytic burden extends into the proximal neural foramen. There is also mild bilateral foraminal stenosis. 2.? Moderate degenerative disc disease at L5-S1. A&P Assessment and plan (1) Lumbosacral radiculopathy: Discussed the CT scan at length with him and his . I will order flexion extension with AP lateral views of his lumbar spine. Discussed treatment options that would involve physical therapy, injections the pain clinic versus surgical intervention. Given his cardiac work-up with medical management would not recommend surgery at the time. Therefore would recommend the conservative options of physical therapy and consultation at the pain clinic for considerations of epidural injections versus facet blocks. I will set him up for consultation with Dr. Boswell. This will be done outpatient. We will set him up for physical therapy to continue at home. We will see him back in our office in 3 to 4 weeks for follow-up. More than 50% of the time spent with the patient today involved coordination of care, counseling and discussion of conservative versus surgical treatment options. Total amount of time spent with the patient was 45 minutes. 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
[2021-11-29 17:19] LABS: Glucose Point of Care 329 mg/dL (70-110)
[2021-11-29 20:40] LABS: Glucose Point of Care 326 mg/dL (70-110)
[2021-11-29] MEDS: enoxaparin 40 mg/0.4 mL Syringe SUBCUT (21:49)
[2021-11-29] MEDS: insulin glargine 100 units/1 mL 10 UNIT SUBCUT (21:49)
[2021-11-30] VITALS (88 sets, daily range): BP systolic 111–150; BP diastolic 80–104; PULSE 83–105; RESP 0–34; TEMP 36.6–36.7; O2SAT 91–98; BMI 35.4
[2021-11-30 04:56] LABS: Basophils % 0.5 %; Eosinophils # 0.1 10^3/uL (0.0-0.8); Eosinophils % 1.4 %; Hematocrit 50.6 % (42.0-52.0); Hemoglobin 16.2 g/dL (11.7-16.6); Lymphocytes # 2.4 10^3/uL (0.8-4.8); Lymphocytes % 42.8 %; Mean Corpuscular Hemoglobin 29.7 pg (28.0-34.0); Mean Corpuscular Volume 92.7 fl (80-94); Mean Platelet Volume 10.3 fL (7.4-10.4); Monocytes # 0.3 10^3/uL (0.2-0.9); Monocytes % 6.1 %; Neutrophils # 2.69 10^3/uL (1.8-7.7); Neutrophils % 48.7 %; Nucleated Red Blood Cells % 0 %; Platelet Count 228 10^3/cmm (130-400); Red Blood Count 5.46 10^6/uL (4.1-5.3); White Blood Count 5.5 10^3/uL (4.0-10.0)
[2021-11-30 05:19] LABS: Anion Gap 15.6 (5-19); Blood Urea Nitrogen 13 mg/dL (6-20); Calcium 8.8 mg/dL (8.5-10.5); Carbon Dioxide 22 mmol/L (22-29); Chloride 103 mmol/L (98-107); Glomerular Filtration Rate 120.9 mL/min (90-130); Glucose 338 mg/dL (65-115); Osmolality Calculated 295 mOsm/kg (285-295); Potassium 4.6 mmol/L (3.5-5.1); Sodium 136 mmol/L (136-145)
[2021-11-30 05:48] LABS: Estmated Average Glucose 197; Hemoglobin A1C 8.5 % (4.0-6.0)
[2021-11-30] MEDS: atorvastatin 40 mg Tablet PO (06:36)
--- NOTE | 2021-11-30 08:30 | PC.NURSE ---
Spoke with Dr. Bains regarding patient taking morning meds with sips since he is NPO for Cardiac Cath today. Dr. Bains said that he can take is aspirin dose. Informed Dr. Bains that his blood pressure was 147/99 this morning, it is due to holding meds for cath today.
[2021-11-30] MEDS: nicotine 21 mg Patch 1 PATCH TRANSDERMA (08:45)
[2021-11-30] MEDS: aspirin 325 mg Tablet PO (08:45)
--- NOTE | 2021-11-30 08:56 | P.PN_ITS ---
Subjective Subjective: Patient was seen and examined this morning, no acute events overnight, npo for cardiac cath Medications: Medication Review Details: Generic Name Dose Route Start Last Admin Trade Name Lauri PRN Reason Stop Dose Admin Aspirin 81 mg 11/29/21 09:00 11/29/21 08:00 Aspirin 81 Mg Ec Tablet PO 81 mg DAILY GUS Administration Atorvastatin Calci um 40 mg 11/29/21 06:00 11/29/21 06:04 Atorvastatin 40 Mg Tablet PO 40 mg QAM GUS Administration Docusate Sodium 100 mg 11/29/21 09:00 11/29/21 08:00 Docusate Sodium 100 Mg Capsule PO 100 mg DAILY GUS Administration Enoxaparin Sodium 40 mg 11/28/21 21:45 11/29/21 00:18 Enoxaparin 40 Mg /0.4 Ml Syringe SUBCUT Not Given Q24H [facility] Famotidine 20 mg 11/29/21 09:00 11/29/21 08:00 Famotidine 20 Mg Tablet PO 20 mg BID GUS Administration Insulin Human Lisp ro 0 unit 11/29/21 08:00 11/29/21 07:56 Insulin Lispro 1 00 Unit/1 Ml SUBCUT 10 unit TIDWM GUS Administration Protocol Lisinopril 20 mg 11/29/21 06:00 11/29/21 06:04 Lisinopril 20 Mg Tablet PO 20 mg QAM GUS Administration Nicotine 1 patch 11/29/21 09:00 11/29/21 08:00 Nicotine 21 Mg P atch TRANSDERMA 1 patch DAILY GUS Administration Vitals/I&O/Wt Last Vital Signs Temp 98.1 F 11/30/21 08:00 Pulse 105 H 11/30/21 08:00 Resp 18 11/30/21 08:00 BP 147/99 11/30/21 08:00 Pulse Ox 96 11/30/21 08:00 11/29/21 11/30/21 11/30/21 22:59 06:59 14:59 Intake Total 240 / 370 200 / 570 Balance 240 / 370 200 / 570 Weight last 48 hrs Weight 112.037 kg Physical Exam Const: COMMON NORMALS: patient oriented x3 HENMT: COMMON NORMALS: normocephalic and atraumatic HEAD & SCALP: normocephalic and atraumatic Chest: CHEST: Yes Symmetrical chest wall rise Resp: COMMON NORMALS: normal respiratory effort and clear to auscultation bilaterally EFFORT & INSPECTION: Yes symmetric chest movement AUS CULTATION: clear to auscultation bilaterally Cardio: COMMON NORMALS: regular rate, regular rhythm, S1 normal heart sound present, S2 normal heart sound present, No gallops present (Cardio), No murmurs present (Cardio), No rub (Cardio) and Peripheral pulses 2+ throughout RATE: regular rate RHYTHM: regular rhythm HEART SOUNDS: S1 normal heart sound present and S2 normal heart sound present PERIPHERAL PULSES: Peripheral pulse s 2+ throughout GI: COMMON NORMALS: Normal to inspection, nondistended, normoactive bowel sounds present, Soft to palpation, non-tender, No hepatosplenomegaly present and no masses AUSCULTATION: Yes normoactive bowel sounds PALPATION: Yes Soft to palpation and Yes No hepatosplenomegaly present RECTAL EXAM: Yes deferred Extremity: COMMON NORMALS: no clubbing, cyanosis or edema and no pedal edema Neuro: COMMON NORMALS: patient oriented x3 Data : 11/30/21 04:37 11/30/21 04:37 A&P Assessment and plan (1) Chest pain: Status: Acute (2) Uncontrolled hypertension: Status: Acute (3) Diabetes: Status: Acute (4) COPD (chronic obstructive pulmonary disease): Uses albuterol inhaler prn. On RA Status: Acute Plan 46-year-old male with past medical history of hypertension diabetes, dyslipidemia, chronic smoking (2 pack a day for close to 35 years, obesity came in with chief complaint of chest tightness, and elevated blood pressure. Assessment: Typical cardiac chest pain: Risk factors include hypertension diabetes, dyslipidemia, chronic smoking (2 pack a day for close to 35 years) Obesity. Troponin trend: 41, 45 , 40 EKG: Sinus tachycardia. Q waves and T wave inversions lead noted in lead II, 3, aVF.T wave inversion in V4 to V6.? Poor anterior R wave progression.? Inferior WV of indeterminate age.? T wave abnormality consider lateral ischemia. 2D echo: Normal LV cavity size, moderately decreased LV systolic function, LVEF at 40%, moderate global LV hypokinesis, Grade 2 diastolic dysfunction. Lipid profile:T , total cholesterol 134, LDL 59, HDL 28 Continue aspirin and statin #Diabetes: Hemoglobin A1c He is on metformin and glipizide at home (currently on hold in hospital) Lantus 30 units subcu daily MDSSI FSG Carb consistent diet #Hypertension: On lisinopril #Lower back pain:; CT lumbar spine without contrast: large dense osteophyte extending posteriorly between L5 and S1 measuring 2.5 cm transversely and extending posteriorly by 1.1 cm. This dense osteophyte contacts the thecal sac and displaces the S1 nerve roots bilaterally. Osteophytic burden extends into the proximal neural foramen. There is also mild bilateral foraminal stenosis. Moderate degenerative disc disease at L5-S1. Orthopedic on board: Currently conservative management physical therapy, pain management.Outpatient follow-up. Attestations Medical Necessity Statement*: Currently awaiting cardiac cath. Time Spent in Patient Care: Greater than 35 minutes (>than 50% of time spent in counselling and/or direct pt care on unit) . Coding Level of Care Code Acute Knitter Hand for [facility] Fwd Exam Detailed Diagnoses Chest pain R07.9 Uncontrolled hypertension I10 Diabetes E11.9 COPD (chronic obstructive pulmonary disease) J44.9
--- NOTE | 2021-11-30 09:13 | PC.NURSE ---
Patient has been prepped and taken down to CCL. Patient left the floor at 0910.
--- NOTE | 2021-11-30 10:10 | W.PM.OPSUD ---
Surgery/Procedure H&P Update DATE OF PROCEDURE: November 30, 2021 DATE H&P PERFORMED: 11/29/21 CHANGES TO PREVIOUS DOCUMENTATION: Patient was seen and chart reviewed. No changes to prior documentation. PREOP DIAGNOSIS: Cardiomyopathy, atypical chest pain PRIMARY INDICATION FOR PROCEDURE: cardiomyopathy, atypical chest pain. PLANNED PROCEDURE: Operation Date: 11/30/21 16:00 Proposed Procedures p Cardiac Catheterization(Left) - Cheryl Downey MD PATIENT REASSESSED PRIOR TO SEDATION, WITH NO CHANGE NOTED: Yes PHYSICAL EXAM: alert, oriented x 3, clear to auscultation bilaterally and regular rate & rhythm AIRWAY EVAL/ANESTHESIA PLAN: see other exam findings (airway 3), ASA III, Monitored Anesthesia, Local Anesthesia, Risks, benefits & alternatives of sedation and/or procedure discussed and Patient agrees to continue as planned
--- NOTE | 2021-11-30 10:22 | PC.CHAP ---
Pastoral Care Encounter/Spiritual Assessment Type of Contact [] Declined motorcycle deliverer visit [] Patient/Family/Request visit [] Outpatient visit [] Follow-up visit [] Physician referral [] Code/Alert [x] Routine visit [] Staff referral [] Actively dying [] Patient sleeping [] Family support [] [x] Out of room [] Palliative care [] [] Receiving care in room [] Pre-surgical visit [] Trauma [] Long length of stay [] ICU visit [] Other: Relational/Emotional Strength [] Patient feels connected with others/family/visitors/staff [] Distress [] Loneliness/isolation [] Abandonment Spirituality of Patient [] Person of Monica [] Attends Pentecostalism of their [place] [] Believes in Prayer [] Reads Bible or Baptism materials [] There are Spiritual issues to be addressed Fulfillment Coordinator Interventions [] Prayer [] Active listening [] Non-anxious presence [] Spiritual/emotional support [] Crisis/trauma care [] Spiritual counseling [] Bereavement support [] Provided bereavement packet [] Provided Bible/devotional materials [] Provided toy/stuffed animal, coloring book to patient or family member [] Provided Communion [] Anointing/[place] [] Salvation [] Completed spiritual assessment [] Other: Impact on Illness or Injury [] Angry [] Fearful [] Anxious [] Often cries [] Exhaustion [] Unable to work [] Unable to attend caodaism [] Unable to walk/stand [] Unable to read [] Unable to drive [] Unable to eat/drink [] Unable to sleep [] Unable to be with family [] Patient intubated [] Other: Summary Time spent with patient
[2021-11-30] MEDS: sodium chloride 0.9% 1,000 ML 100 ML IV (11:26)
[2021-11-30 11:29] LABS: Glucose Point of Care 318 mg/dL (70-110)
[2021-11-30 13:32] LABS: Glucose Point of Care 295 mg/dL (70-110)
[2021-11-30] MEDS: insulin lispro 100 unit/1 mL SUBCUT ×2 (13:58→17:33)
--- NOTE | 2021-11-30 16:00 | XACV_ITS ---
Exam Room: [facility] Ht: 178 cm Wt: 112 kg BSA: 2.39 m2 Gender: Male : 1975 Any Known Allergies: No known allergies Exam Priority: Routine Procedure(s): Procedure Description: Diagnostic procedure Procedure Description: PCI procedure Procedure Description: Left Heart Catheterization Procedure Description: Drug Eluting Coronary Stent Procedure Description: PTCA Procedure Description: Coronary Angiography Diagnostic Cath Status: Elective Diagnostic Findings * Coronary angiography shows right dominance. * Left Main has no disease. * Small to medium sized * left Anterior Descending artery with 1 major diagonal branch. No disease noted. * Medium sized * circumflex with 2 * major obtuse marginals. 20 % narrowing of proximal circumflex and ostial OM1 with 70% narrowing. JONN-3 flow. * Medium to large * caliber right coronary artery. Proximal right coronary artery with 30% narrowing. * D * istal Right Coronary Artery: obstructive 95% stenosis, JONN: 2 flow. rPDA and rPLV branches are filled by collaterals from left (mostly from circumflex artery). PCI Status: Elective PCI LVEF Assessed: No PCI Indication: NSTE - ACS Interventional Findings * There is a lesion in the distal right coronary artery of at least 95% stenosis. A wire was placed. The lesion required predilatation with a 3.0 balloon. Subsequently a 3 mm x 15 mm stent was placed with a good result. Patient began to cough about jail through the intervention suggesting some mild pulmonary edema. His oxygen saturations were normal. He does have left ventricular dysfunction. I gave him 40 mg of Lasix IV at the end of the procedure. He was also hypertensive which contributed to this. * Distal Right Coronary Artery: 70% stenosis treated with a AB TREK 3.00X12 RX BALLOON, and MDT R RAKAN 3.0X15 MELYSSA. Decision for PCI with Surgical Consult: No PCI for Multi-vessel Disease: No Conclusions 1. Distal Right Coronary Artery was treated with a Balloon, and Drug Eluting Stent. 2. There is obstructive coronary artery disease with one vessel disease. 3. LVEDP of 42 mm Hg. Recommendations * Continue current medical management and risk factor modification. * Continue Plavix 75mg p.o. daily for at least one year. Left Ventriculography Findings: * Left Ventriculogram not performed due to elevated EDP. Pressures Phase:Rest AO : 140 / 91 ( 107 ) @ 10:42:00 AM 115 / 98 ( 107 ) @ 10:43:00 AM 117 / 99 ( 108 ) @ 10:44:00 AM 146 / 101 ( 121 ) @ 10:51:00 AM 139 / 109 ( 125 ) @ 10:54:00 AM 152 / 104 ( 125 ) @ 10:58:00 AM 133 / 91 ( 111 ) @ 11:08:00 AM 116 / 81 ( 98 ) @ 11:14:00 AM 111 / 87 ( 100 ) @ 11:18:00 AM LV : 174 / -3 / 42 @ 10:57:00 AM 176 / -6 / 43 @ 10:58:00 AM Hemodynamic Findings LVEDP is 42 mmHg. Clinical Evaluation EBL: 5mL-10mL Procedural Details Identified patient by full name and date of as verbalized by the patient/guarantor. Pre-Procedure Time Out. Does the consent match the physician's order: Yes. Accurate & Complete Informed Consent: Yes. Inpatient/Outpatient History & Physical on Chart: Yes. If H&P is completed, is and addenduem needed: No; If yes, is the addendum complete: N/A. Visualize and Verify Site with Patient/Guarantor: N/A. Relevant Radiology Images available: Yes. The risks, benefits, and alternatives of sedation and/or procedure were discussed by physician. The patient agrees to continue. Pre-op teaching completed and patient verbalized understanding. Procedure started. [facility] Clinical Fraility Score: 3: Managing Well. 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 PERRLA. Strong, equal hand service line coordinator bilaterally. Lungs clear x 5 lobes. IV Site on Arrival: 20 gauge in the left anticubital. IV Fluids: 0.9% NaCl at KVO. 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 Oxygen started at 2liters/min via nasal canula. Pre Procedural Pulses: right radial was 3+. right groin was prepped with chloroprep then draped in the usual sterile fashion. right radial was prepped with chloroprep then draped in the usual sterile fashion. Physician notified. Baseline sample Acquired. HR: 113 BPM. Physician arrived. Physician scrubbed in. Immediate Pre-Procedure Time Out. Correct Patient: Yes; Correct Procedure: Yes; Correct Site: Yes; Correct Patient Position: Yes; Correct Supplies: Yes; Dried Flammable Prep: Yes; Blood Products Available: N/A;. Lidocaine 1% infiltrated to the right radial. Arterial access obtained. A 5 tajik TIG catheter in over wire. Multiple views taken of left coronary artery. Catheter redirected to the RCA. Multiple views taken of right coronary artery. EDP Sample taken: LV 174/-4,42; HR: 108 BPM; SpO2: 98%. EDP Sample taken: LV 176/-7,43; HR: 108 BPM; SpO2: 98%. Pullback taken: LV Off; AO Off; Mean: , Peak to Peak: , SEP: ; HR: 108 BPM; SpO2: 97%. Catheter removed over the standard wire. Physician review of cine films. Physician scrubbed out. Dr. Couch scrubbed in to perform intervention. 6 tajik JR 4 guide catheter was inserted over the wire. Chardon guidewire was advanced through the guide catheter to lesion in the distal RCA. Inflation number : 1 A AB TREK 3.00X12 RX BALLOON was prepped and advanced across the Dist RCA , then inflated to 0 ARYA for 0:17 seconds. Inflation number: 3 The AB TREK 3.00X12 RX BALLOON was reinflated across the Dist RCA, to 12 ARYA for 0:33 seconds. Inflation number: 4 The AB TREK 3.00X12 RX BALLOON was reinflated across the Dist RCA, to 12 ARYA for 0:12 seconds. Balloon out. Results checked. Inflation Number : 4 A MDT R RAKAN 3.0X15 MELYSSA -Lot Number# _[id number] EXP:09/08/2024 was prepped and advanced across the Dist RCA. The stent was deployed at 12 ARYA for 0:33 seconds. Balloon and wire out. Guide catheter out. A TR Band was successful obtaining hemostatsis at the Right Radial artery insertion site. Post Procedure: Pulses reassessed and unchanged. PERRLA. Strong, equal hand service line coordinator bilaterally. No VTE prophylaxis required. Total IV fluids: 71 mL. Medication's Wasted: Lidocaine 1% = 8 mL. Medication's Wasted: Heparin = 1000 units. Medication's Wasted: Other = Versed 1 mg. Medication's Wasted: Nitro = 49.8 mg. Contrast type used: Omnipaque 300 mg/mL, 150 mL bottle. Post-op diagnosis: CAD. Complications: None. Estimated blood loss: 5mL-10mL. Responsiveness - Normal response to verbal stimuli; alert and oriented, PERRLA. Airway - Unaffected, no intervention required; spontaneous ventilation. Circulation: W/N/L, pulses unchanged. Nausea/Vomiting: No. Procedure completed. Patient transferred by wheelchair to ICU. Access Site Site: Right Radial artery Sheath Size: 6 Fr Hemostasis Method: TR Band Hemostasis Success: Successful Procedure Medications Start: 9:32 AM Stop: 9:32 AM Medication: Versed Amount: 1 mg Route: I.V. Start: 9:32 AM Stop: 9:32 AM Medication: Fentanyl Amount: 50 mcg Route: I.V. Start: 9:36 AM Stop: 9:36 AM Medication: Versed Amount: 1 mg Route: I.V. Start: 9:38 AM Stop: 9:38 AM Medication: Nitrogylcerin Amount: 200 mcg Route: I.A. Start: 9:41 AM Stop: 9:41 AM Medication: Heparin Amount: 5000 units Route: I.V. Start: 9:45 AM Stop: 9:45 AM Medication: Fentanyl Amount: 50 mcg Route: I.V. Start: 10:04 AM Stop: 10:04 AM Medication: Plavix Amount: 600 mg Route: P.O. Start: 10:06 AM Stop: 10:06 AM Medication: Versed Amount: 1 mg Route: I.V. Start: 10:08 AM Stop: 10:08 AM Medication: Lopressor (metoprolol) Amount: 5 mg Route: I.V. Start: 10:29 AM Stop: 10:29 AM Medication: Lasix (furosemide) Amount: 40 mg I, the attending physician, have reviewed and verified all procedure medications. Yes, all medications given per verbal order History/Risk Factors Hypertension: Yes Dyslipidemia: No Peripheral Arterial Disease (PAD): No Myocardial Infarction (ND): No Obesity: Yes Renal Disease: No Prior Interventions PCI: No CABG: No Valve Surgery: No Report Signatures Diagnostic Workflow Finalized by Cheryl Downey MD on 11/30/2021 06:13 PM Interventional Workflow Finalized by Dr. Mason Couch MD on 11/30/2021 10:44 AM
[2021-11-30 17:30] LABS: Glucose Point of Care 349 mg/dL (70-110)
[2021-11-30] MEDS: acetaminophen 500 mg Tablet 1000 MG PO (17:32)
[2021-11-30] MEDS: famotidine 20 mg Tablet PO (17:32)
--- NOTE | 2021-11-30 18:59 | PC.NURSE ---
Spoke to Dr. Arizmendi to clarify Lovenox order. 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
[2021-11-30 19:30] LABS: Glucose Point of Care 356 mg/dL (70-110)
[2021-11-30] MEDS: carvedilol 3.125 mg Tablet PO (21:56)
[2021-11-30] MEDS: HYDROcodone-acetaminophen 5-325 mg Tablet 1 TAB PO (21:56)
[2021-11-30] MEDS: insulin glargine 100 units/1 mL 30 UNIT SUBCUT (22:04)
[2021-12-01] VITALS (17 sets, daily range): BP systolic 107–143; BP diastolic 74–107; PULSE 76–98; RESP 11–31; TEMP 36.6; O2SAT 93–98
[2021-12-01] MEDS: atorvastatin 40 mg Tablet 80 MG PO (05:08)
[2021-12-01 05:31] LABS: Basophils % 0.3 %; Eosinophils # 0.1 10^3/uL (0.0-0.8); Eosinophils % 1.3 %; Hemoglobin 16.2 g/dL (11.7-16.6); Lymphocytes % 40.2 %; Mean Corpuscular HGB Conc 32.4 g/dL (30.0-36.0); Mean Corpuscular Hemoglobin 29.6 pg (28.0-34.0); Mean Corpuscular Volume 91.4 fl (80-94); Mean Platelet Volume 10.6 fL (7.4-10.4); Monocytes # 0.6 10^3/uL (0.2-0.9); Monocytes % 7.6 %; Neutrophils # 3.74 10^3/uL (1.8-7.7); Neutrophils % 49.9 %; Nucleated Red Blood Cells % 0 %; Platelet Count 236 10^3/cmm (130-400); Red Blood Count 5.47 10^6/uL (4.1-5.3); Red Cell Distribution Width 12.9 % (12.1-15.1); White Blood Count 7.5 10^3/uL (4.0-10.0)
[2021-12-01 05:56] LABS: Blood Urea Nitrogen 16 mg/dL (6-20); Calcium 9.6 mg/dL (8.5-10.5); Carbon Dioxide 22 mmol/L (22-29); Chloride 103 mmol/L (98-107); Glomerular Filtration Rate 120.9 mL/min (90-130); Glucose 281 mg/dL (65-115); Osmolality Calculated 291 mOsm/kg (285-295); Sodium 135 mmol/L (136-145)
[2021-12-01 06:19] LABS: Estmated Average Glucose 197; Hemoglobin A1C 8.5 % (4.0-6.0)
[2021-12-01 07:56] LABS: Glucose Point of Care 265 mg/dL (70-110)
--- NOTE | 2021-12-01 08:08 | P.PN_ITS ---
Subjective Subjective: s/p MELYSSA to distal RCA Vitals/I&O/Wt Last Vital Signs Temp 98 F 12/01/21 07:00 Pulse 79 12/01/21 07:00 Resp 16 12/01/21 07:00 BP 133/85 12/01/21 07:00 Pulse Ox 94 12/01/21 06:00 11/30/21 12/01/21 12/01/21 22:59 06:59 14:59 Intake Total 522 / 744 200 / 944 Output Total 1000 / 1350 500 / 1850 Balance -478 / -606 -300 / -906 Weight last 48 hrs Weight 247 lb Physical Exam Narrative: GENERAL: Averagely built and averagely nourished in no acute distress HEENT: Extraocular movement intact. Pupils equal round reactive to light. No pallor or icterus. NECK: central trachea, [] JVD, [] abdominojugular reflex. No carotid bruit. CARDIOVASCULAR SYSTEM: S1-S2 regular. No S3 or S4 present. [No murmur rubs or gallops.] RESPIRATORY SYSTEM: Chest clear to auscultation. No wheezes rhonchi or rubs heard. [] No use of accessory muscles. ABDOMEN: Soft, nontender and nondistended. Normal bowel sounds present. No hepatosplenomegaly appreciated. [] EXTREMITIES: No cyanosis or clubbing. [No edema]. No signs of chronic venous insufficiency. CLOTHING EXAMINER: Patient is alert oriented ?3. No focal neurological deficits. Cranial nerves intact. [] SKIN: Normal turgor and temperature. No breakdown, rash or nail changes noted. [] PSYCH: Normal insight and judgment. No suicidal or homicidal ideations. Data : 12/01/21 04:49 12/01/21 04:49 A&P Assessment and plan (1) CAD (coronary artery disease): s/p MELYSSA to distal RCA Stenosis. Medical management for proximal circumflex and ostial OM1 disease. -Continue DAPT, statin and low-dose Coreg. -NTG sublingual -Follow-up with Nelli in 1 week and follow-up with in 6 to 8 weeks. Status: Acute (2) CHF (congestive heart failure), NYHA class III: Ischemic cardiomyopathy, heart failure with reduced ejection fraction -Received Lasix 40 mg IV x1 after cath with 1800 mL of urine output -Started on Coreg. Continue lisinopril. -Start on low-dose Lasix p.o. on discharge. Status: Acute (3) Hypertension: Blood pressure better controlled -Advised to monitor on discharge. Status: Acute (4) Diabetes: On oral hypoglycemics metformin and glipizide at home. Hemoglobin A1c 8.2. -recommend SGLT2 inhibitor. -will consider initiation outpatient Status: Acute (5) Obesity: Status: Acute (6) COPD (chronic obstructive pulmonary disease): Status: Acute Plan Mixed hyperlipidemia: On Lipitor 40 mg at home Mildly elevated transaminases Heavy smoker: Recently quit Chronic back pain Thank you for allowing me to participate in patient's care. Please feel free to call with questions or concerns. 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
[2021-12-01] MEDS: insulin lispro 100 unit/1 mL SUBCUT (08:11)
[2021-12-01] MEDS: nicotine 21 mg Patch 1 PATCH TRANSDERMA (08:13)
[2021-12-01] MEDS: carvedilol 3.125 mg Tablet PO (08:14)
[2021-12-01] MEDS: FUROsemide 20 mg Tablet PO (08:14)
[2021-12-01] MEDS: docusate sodium 100 mg Capsule PO (08:14)
[2021-12-01] MEDS: aspirin 81 mg Chew Tablet PO (08:14)
[2021-12-01] MEDS: famotidine 20 mg Tablet PO (08:14)
[2021-12-01] MEDS: lisinopril 10 mg Tablet PO (08:14)
[2021-12-01] MEDS: clopidogrel 75 mg Tablet PO (08:14)
--- NOTE | 2021-12-01 09:19 | P.DS_ITS ---
Discharge Providers Date of Admission: 11/29/21 09:00 Date of Discharge: December 01, 2021 Attending Provider at Admission: Rossy Linda MD Attending Provider at Discharge: Dheeraj Bains MD Primary Care Provider: JOHANA Stafford Diagnoses at Discharge Discharge Diagnosis (1) Chest pain: Status: Acute (2) CAD (coronary artery disease): Status: Acute (3) CHF (congestive heart failure), NYHA class III: Status: Acute (4) Hypertension: Status: Acute (5) Diabetes: Status: Acute (6) Obesity: Status: Acute (7) COPD (chronic obstructive pulmonary disease): Status: Acute Reason for Visit Reason for Visit: chest pain Hospital Course Hospital Course 46-year-old male with past medical history of hypertension diabetes, dyslipidemia, chronic smoking (2 pack a day for close to 35 years, obesity came in with chief complaint of chest tightness, and elevated blood pressure. He was admitted for the management of typical cardiac chest pain: EKG: Sinus tachycardia. Q waves and T wave inversions lead noted in lead II, 3, aVF.T wave inversion in V4 to V6.? Poor anterior R wave progression.? Inferior [place] of indeterminate age.? T wave abnormality consider lateral ischemia. 2D echo: ?Normal LV cavity size, moderately decreased LV systolic function, LVEF at 40%, moderate global LV hypokinesis, Grade 2 diastolic dysfunction. He underwent cardiac cath: Which showed Left Main has no disease. Small to medium sized left Anterior Descending artery with 1 major diagonal branch.? No disease noted. circumflex with 2 major obtuse marginals. 20 % narrowing of proximal circumflex and ostial OM1 with 70% narrowing. JONN-3 flow. Medium to large caliber right coronary artery.? Proximal right coronary artery with 30% narrowing. D istal Right Coronary Artery: obstructive? 95% stenosis, JONN: 2 flow. rPDA and rPLV branches are filled by collaterals from left (mostly from circumflex artery). S/p drug-eluting stent placement to distal RCA. Patient was continued on aspirin Plavix statin beta-roxane, lisinopril. He will need DAPT for at least 1 year. Patient was also managed for HFrEF, ischemic cardiomyopathy, he has been started on Lasix 20 mg p.o. daily, along with beta-roxane lisinopril. Patient has been continued on metformin and glipizide for his diabetes, SGLT2 inhibitor can be started as an outpatient. During this hospital stay he was also complaining of longstanding lower back pain: For which CT lumbar spine was done:large dense osteophyte extending posteriorly between L5 and S1 measuring 2.5 cm transversely and extending posteriorly by 1.1 cm. This dense osteophyte contacts the thecal sac and displaces the S1 nerve roots bilaterally. Osteophytic burden extends into the proximal neural foramen. There is also mild bilateral foraminal stenosis.Moderate degenerative disc disease at L5-S1. Patient was seen by orthopedic Current plan is to continue with conservative management physical therapy pain control, will follow-up orthopedic as an outpatient in 2 weeks. Overall patient responded well to above medical management and is being discharged in stable condition to home he will continue to follow with primary care physician as well as cardiology as an outpatient. Physical Exam Const: COMMON NORMALS: patient oriented x3 HENMT: COMMON NORMALS: normocephalic and atraumatic HEAD & SCALP: normocephalic and atraumatic Chest: CHEST: Yes Symmetrical chest wall rise Resp: COMMON NORMALS: normal respiratory effort and clear to auscultation bilaterally EFFORT & INSPECTION: Yes symmetric chest movement AUSCULTATION: clear to auscultation bilaterally Cardio: COMMON NORMALS: regular rate, regular rhythm, S1 normal heart sound present, S2 normal heart sound present, No gallops present (Cardio), No murmurs present (Cardio), No rub (Cardio) and Peripheral pulses 2+ throughout RATE: regular rate RHYTHM: regular rhythm HEART SOUNDS: S1 normal heart sound present and S2 normal heart sound present PERIPHERAL PULSES: Peripheral pulses 2+ throughout GI: COMMON NORMALS: Normal to inspection, nondistended, normoactive bowel sounds present, Soft to palpation, non-tender, No hepatosplenomegaly present and no masses AUSCULTATION: Yes normoactive bowel sounds PALPATION: Yes Soft to palpation and Yes No hepatosplenomegaly present RECTAL EXAM: Yes deferred Extremity: COMMON NORMALS: no clubbing, cyanosis or edema and no pedal edema Neuro: COMMON NORMALS: patient oriented x3 Discharge Data Studies Completed and Pending Completed Studies During Hospitalization Category Date Time Status CT lumbar spine wo con* [id number] Routine Cat Scan 11/29/21 08:43 Completed PHARMACY HELPER request for service Routine Exams 11/30/21 16:00 Completed XR chest 1V portable [id number] Stat Exams 11/28/21 14:06 Completed CV. echo wo/w contrast [id number] Routine Ultrasound 11/29/21 14:00 Completed Pending at discharge Category Date Time Status BMP [Basic Metabolic Panel] AM LABS Lab 12/02/21 04:00 Ordered CBC Auto Diff [Complete Blood Count w/Auto] AM LABS Lab 12/02/21 04:00 Ordered Radiology Impressions Chest X-Ray 11/28/21 14:06 Impression: Negative chest. Lumbar Spine CT 11/29/21 08:43 IMPRESSION: 1. There is a large dense osteophyte extending posteriorly between L5 and S1 measuring 2.5 cm transversely and extending posteriorly by 1.1 cm. This dense osteophyte contacts the thecal sac and displaces the S1 nerve roots bilaterally. Osteophytic burden extends into the proximal neural foramen. There is also mild bilateral foraminal stenosis. 2. Moderate degenerative disc disease at L5-S1. Laboratory Results WBC 7.5 10^3/uL (4.0-10.0) 12/01/21 04:49 RBC 5.47 10^6/uL (4.1-5.3) H 12/01/21 04:49 Hgb 16.2 g/dL (11.7-16.6) 12/01/21 04:49 Hct 50.0 % (42.0-52.0) 12/01/21 04:49 MCV 91.4 fl (80-94) 12/01/21 04:49 MCH 29.6 pg (28.0-34.0) 12/01/21 04:49 MCHC 32.4 g/dL (30.0-36.0) 12/01/21 04:49 RDW 12.9 % (12.1-15.1) 12/01/21 04:49 Plt Count 236 10^3/cmm (130-400) 12/01/21 04:49 MPV 10.6 fL (7.4-10.4) H 12/01/21 04:49 Neut % (Auto) 49.9 % 12/01/21 04:49 Lymph % (Auto) 40.2 % 12/01/21 04:49 [place] % (Auto) 7.6 % 12/01/21 04:49 Eos % (Auto) 1.3 % 12/01/21 04:49 Baso % (Auto) 0.3 % 12/01/21 04:49 Neut # (Auto) 3.74 10^3/uL (1.8-7.7) 12/01/21 04:49 Lymph # (Auto) 3.0 10^3/uL (0.8-4.8) 12/01/21 04:49 [place] # (Auto) 0.6 10^3/uL (0.2-0.9) 12/01/21 04:49 Eos # (Auto) 0.1 10^3/uL (0.0-0.8) 12/01/21 04:49 Baso # (Auto) 0.0 10^3/uL (0.0-0.1) 12/01/21 04:49 Nucleated RBC % (auto) 0 % 12/01/21 04:49 Nucleated RBCs # 0.0 /100WBC 12/01/21 04:49 Sodium 135 mmol/L (136-145) L 12/01/21 04:49 Potassium 4.0 mmol/L (3.5-5.1) 12/01/21 04:49 Chloride 103 mmol/L (98-107) 12/01/21 04:49 Carbon Dioxide 22 mmol/L (22-29) 12/01/21 04:49 Anion Gap 14.0 (5-19) 12/01/21 04:49 BUN 16 mg/dL (6-20) 12/01/21 04:49 Creatinine 0.7 mg/dL (0.7-1.2) 12/01/21 04:49 GFR Calculation 120.9 mL/min (90-130) 12/01/21 04:49 Glucose 281 mg/dL (65-115) H 12/01/21 04:49 POC Glucose 265 mg/dL (70-110) H 12/01/21 07:49 Estimat Average Glucose 197 12/01/21 04:49 Hemoglobin A1c 8.5 % (4.0-6.0) H 12/01/21 04:49 Calculated Osmolality 291 mOsm/kg (285-295) 12/01/21 04:49 Calcium 9.6 mg/dL (8.5-10.5) 12/01/21 04:49 Total Bilirubin 0.5 mg/dL (0.15-1.2) 11/29/21 04:27 AST 54 U/L (0-40) H 11/29/21 04:27 ALT 65 U/L (0-41) H 11/29/21 04:27 Alkaline Phosphatase 96 IU/L (40-130) 11/29/21 04:27 Troponin T Baseline 41 ng/L (0-15) H 11/28/21 15:59 Troponin T 120 Minute 45.11 ng/L (0-15) H 11/28/21 18:10 Delta Troponin T 4.11 ABS# (0-10) 11/28/21 18:10 Troponin T Hi Sens 6Hr 40.10 ng/L (0-15) H 11/28/21 21:32 Troponin T Hi Sens 6Hr Delta -0.90 ng/L (0-12) L 11/28/21 21:32 Total Protein 6.6 g/dL (6.6-8.7) 11/29/21 04:27 Albumin 4.3 g/dL (3.5-5.2) 11/29/21 04:27 Globulin 2.3 g/dL (1.3-4.6) 11/29/21 04:27 Triglycerides 233 mg/dL (0-150) H 11/29/21 04:27 Cholesterol 134 mg/dL (0-200) 11/29/21 04:27 LDL Cholesterol, Calc 59 mg/dL (50-129) 11/29/21 04:27 HDL Cholesterol 28 mg/dL (60-100) L 11/29/21 04:27 LDL/HDL Ratio 2.11 RATIO (0.00-3.22) 11/29/21 04:27 Cholesterol/HDL Ratio 4.79 mg/dL (1.0-5.00) 11/29/21 04:27 Vitals Last Vital Signs Temp 98 F 12/01/21 07:00 Pulse 79 12/01/21 07:00 Resp 16 12/01/21 07:00 BP 133/85 12/01/21 07:00 Pulse Ox 94 12/01/21 06:00 Discharge Plan Discharge Patient Disposition: Home Condition: Stable Prescriptions: New atorvastatin 40 mg Tablet 80 mg PO QAM 30 Days Qty: 30 3RF clopidogrel 75 mg Tablet 75 mg PO DAILY 30 Days Qty: 30 3RF carvedilol 3.125 mg Tablet 3.125 mg PO BID@0900,2100 30 Days Qty: 60 2RF Children's Aspirin 81 mg Tablet,Chewable 81 mg PO DAILY 30 Days Qty: 30 3RF furosemide 20 mg Tablet 20 mg PO 0900 30 Days Qty: 30 3RF lisinopril 10 mg Tablet 10 mg PO DAILY Qty: 30 2RF Nitrostat 0.4 mg tablet, sublingual 0.4 mg sublingual Q5M PRN (Reason: chest pain) 30 Days Qty: 30 3RF Rx Instructions: do not exceed 3 doses per episode nicotine 21 mg/24 hr Patch 24 Hour 1 patch transdermal DAILY 30 Days Qty: 30 3RF Continued glipizide 10 mg tablet 10 mg PO BID 0RF Stool Softener 100 mg Capsule 100 mg PO DAILY 0RF albuterol sulfate 90 mcg/actuation HFA aerosol inhaler 2 puff INHALATION Q4H PRN (Reason: Shortness Of Breath) 0RF fiber Capsule 3 cap PO DAILY 0RF Vitamin D3 125 mcg (5,000 unit) Tablet 10,000 unit PO DAILY 0RF Changed lisinopril 20 mg tablet 10 mg PO QAM 30 Days Qty: 30 3RF acetaminophen 500 mg Tablet 500 mg PO Q6H PRN (Reason: Pain) 30 Days Qty: 30 0RF Held metformin 1,000 mg tablet 1,000 mg PO BID 0RF Hold Instructions: Resume on 12/07/21. Discontinued atorvastatin 40 mg tablet 40 mg PO QAM 0RF Discharge Orders: Discharge Order (Routine); Ordered 12/01/21 Ordered By: Dheeraj Bains Referrals: Yonatan Morillo DO [Physician] - 2 weeks ( APPOINTMENT SCHEDULED December AT 08:45 AM ,IF THIS IS NOT CONVIENIENT . PLEASE CALL AND RESCHEDULE DWAIN . ) Bebeto Hensley FNP [Nurse Practitioner] - (HE[facility]ARE SERVICES ,BEBETO HENSLEY APN NURSE FOR POST PROCEDURE LEFT HEART CATH , WILL NEED LAB TEST AND WOUND CHECK FOR THIS APPOINTMENT SCHEDULED FOR DECEMBER 08Sunday AT 11:00 AM ) Dodie Mota FNP-C [Referring] - (SCHEDULED DECEMBER 07, 2021 AT TIME OF 2:30) Cheryl Downey MD [Physician] - 1 month (THIS APPOINTMENT HAS BEEN SCHEDULED , YOU HAD ,HAD AN APPOINTMENT WITH DR. GLEASON BUT HAS PERFORMED PROCEDURE LEFT HEART CATH . AND WILL BE YOUR EMAIL OPERATIONS MANAGER FOR NEW PATIENT . AND THAT APPOINTMENT SCHEDULED ,THURSDAY JANUARY 13, 2022 AT TIME OF 11:00 AM ) Discharge Diet: Diabetic Discharge Activity: Resume usual activity Patient Instructions: Lisinopril (By mouth) (Prinivil, Zestril), Furosemide (By mouth) (Lasix), Aspirin (By mouth), Nicotine (Absorbed through the skin) (Nicoderm CQ, Nicoderm CQ..., Nitroglycerin, Rapid Release (By mouth) (NitroMist, Nitrolingual,..., Atorvastatin (By mouth) (Lipitor), Carvedilol (By mouth), Clopidogrel (By mouth) (Plavix), Hypertension, Coronary Artery Disease (DC), Coronary Angioplasty (DC), How to Stop Smoking (DC), Coronary Intravascular Stent Placement (DC), CHF Stoplight, Chest Pain Stoplight, Opioid Safety Discharge Attestations Time Spent in Discharge Care*: greater than 30 min Quality Metrics Clinical Quality Measures [ No reported AMI, CVA or VTE this stay] Coding Level of Care Code Acute Chg FW DC note Diagnoses Chest pain R07.9 CAD (coronary artery disease) I25.10 CHF (congestive heart failure), NYHA class III I50.9 Hypertension I10 Diabetes E11.9 Obesity E66.9 COPD (chronic obstructive pulmonary disease) J44.9
== END 2021-12-01 11:59 | disposition home or self-care (01) | DRG 247 ==
LOC: ER 20:14 → MEDSURG 20:47 → ICU 11-30 13:05
PROVIDERS: Internal Medicine Cardiovascular Disease; Physician Assistant; Admitting Provider Internal Medicine; Emergency Provider Physician Assistant; PCP Nurse Practitioner; Visit Provider Internal Medicine
PROC: 027034Z Dilation of Coronary Artery, One Artery with Drug-eluting Intraluminal Device, Percutaneous Approach (ICD-10-PCS; 2021-11-30 16:00)
DX: I25.10 Atherosclerotic heart disease of native coronary artery without angina pectoris (principal); I50.20 Unspecified systolic (congestive) heart failure; I11.0 Hypertensive heart disease with heart failure; J44.9 Chronic obstructive pulmonary disease, unspecified; E11.9 Type 2 diabetes mellitus without complications; E66.9 Obesity, unspecified; Z68.35 Body mass index [BMI] 35.0-35.9, adult; Z87.891 Personal history of nicotine dependence; E78.2 Mixed hyperlipidemia; M51.17 Intervertebral disc disorders with radiculopathy, lumbosacral region; G89.29 Other chronic pain; I25.5 Ischemic cardiomyopathy; Z79.84 Long term (current) use of oral hypoglycemic drugs; Z79.51 Long term (current) use of inhaled steroids
CPT/HCPCS: 12345; 36415; 36416; 71045; 72131; 80048; 80053; 80061; 82962; 83036; 84484; 85025; 93005; 93306; 93452; 93458; 96360; 96372; 97161; 99152; 99153; C1725; C1769; C1874; C1887; C1894; C8929; C9600; G0378; J1644; J1650; J1815 ×2; J1940; J2250; J2704; J3010; J3490; J7030; Q9956; Q9967

== ENCOUNTER → 2021-12-08 11:29 | Outpatient (BNVA) | payer BC, MEDICAID, SELFPAY | PROVIDERS: PCP Nurse Practitioner; Visit Provider Nurse Practitioner Family | DX: Z09 Encounter for follow-up examination after completed treatment for conditions other than malignant neoplasm (principal); I25.10 Atherosclerotic heart disease of native coronary artery without angina pectoris; I11.0 Hypertensive heart disease with heart failure; I50.9 Heart failure, unspecified; Z87.891 Personal history of nicotine dependence | CPT/HCPCS: 80048; 99214 ==

== ENCOUNTER → 2021-12-20 08:51 | Outpatient (BNVA) | payer BC, MEDICAID, SELFPAY | PROVIDERS: PCP Nurse Practitioner; Visit Provider Orthopaedic Surgery | DX: M48.062 Spinal stenosis, lumbar region with neurogenic claudication (principal) | CPT/HCPCS: 72110; 99203; 99204 ==

== ENCOUNTER 2021-12-27 10:53 | Outpatient (CLI) | payer BC, MEDICAID, SELFPAY ==
--- NOTE | 2021-12-27 10:59 | CT_ITS ---
WS: [email or web address] CT ABDOMEN PELVIS TECHNIQUE: Contrast-enhanced CT of the abdomen and pelvis with coronal and sagittal reformatted image s. CLINICAL INFORMATION: ?RENAL MASS-SEEN ON LUMBAR XRAY COMPARISON: Lumbar Radiograph December 20, 2021 DLP: 1524.[address] scans at [facility] use at least one of these dose optimization techniques: automated e xposure control; mA and/or kV adjustment per patient size (includes targeted exams where dose is matc hed to clinical indication); or iterative reconstruction. FINDINGS: Lung bases are well aerated. Calcified Granuloma RIGHT lower lobe. Mild diffuse fatty infiltration li brigido. Enlargement of the RIGHT hepatic lobe with mild hepatomegaly. Normal GE junction. Normal spleen. Normal pancreatic parenchymal enhancement. A few prominent lymph nodes in the addie hepatis and natasha ac axis likely reactive. Adrenal glands are normal. Normal renal enhancement. No hydronephrosis. No e vidence of renal mass or lesion. Both ureters are decompressed. Normal portal vein and splenic vein. Normal caliber abdominal aorta. Celiac and SMA are patent. Indigo l sigmoid colon. Mild sigmoid constipation. Prostate calcification. No free fluid in the abdomen or p stephanie. Disc space narrowing L5-S1 with dorsal osteophyte which results in mild to moderate central ca nal stenosis. Moderate bilateral L5-S1 bony foraminal narrowing. CT/CT abdomen pelvis w con* [id number] IMPRESSION: 1. Diffuse fatty infiltration of the liver with mild hepatomegaly. 2. Mild sigmoid constipation. No evidence of small or large bowel obstruction. 3. A few prominent lymph nodes in the addie hepatis and celiac axis nonspecifi c but likely reactive. 4. Normal renal parenchymal enhancement. No hydronephrosis. No evidence of feng al mass or lesion. 5. Degenerative disc disease L5-S1 with mild to moderate central canal stenosi s and bony foraminal narrowing described above.
[2021-12-27] MEDS: iohexol 300 mg/mL 100 mL Btl IV (13:22)
[2021-12-27] MEDS: iohexol 300 mg/mL 50 mL Btl PO (13:27)
== END 2021-12-27 10:54 | disposition home or self-care (01) ==
PROVIDERS: PCP Nurse Practitioner; Visit Provider Nurse Practitioner Family
DX: R93.89 Abnormal findings on diagnostic imaging of other specified body structures (principal); K76.0 Fatty (change of) liver, not elsewhere classified
CPT/HCPCS: 74177

== ENCOUNTER → 2022-01-13 10:54 | Outpatient (BNVA) | payer BC, MEDICAID, SELFPAY | PROVIDERS: PCP Nurse Practitioner Family; Visit Provider Internal Medicine Cardiovascular Disease | DX: I25.10 Atherosclerotic heart disease of native coronary artery without angina pectoris (principal); I11.0 Hypertensive heart disease with heart failure; I50.22 Chronic systolic (congestive) heart failure; E78.5 Hyperlipidemia, unspecified; E11.9 Type 2 diabetes mellitus without complications; M48.062 Spinal stenosis, lumbar region with neurogenic claudication; Z87.891 Personal history of nicotine dependence; Z79.84 Long term (current) use of oral hypoglycemic drugs | CPT/HCPCS: 99214 ==

== ENCOUNTER → 2022-01-30 09:40 | Outpatient (BNVA) | payer BC, MEDICAID, SELFPAY | PROVIDERS: Visit Provider Anesthesiology Pain Medicine | DX: M48.062 Spinal stenosis, lumbar region with neurogenic claudication (principal); M79.604 Pain in right leg; M79.605 Pain in left leg; M25.519 Pain in unspecified shoulder; F17.200 Nicotine dependence, unspecified, uncomplicated | CPT/HCPCS: 99204 ==

== ENCOUNTER → 2022-03-22 10:58 | Outpatient (BNVA) | payer BC, MEDICAID, SELFPAY | PROVIDERS: PCP Clinical Nurse Specialist Adult Health; Referring Provider Nurse Practitioner Family; Visit Provider Specialist | DX: E11.42 Type 2 diabetes mellitus with diabetic polyneuropathy (principal); I25.10 Atherosclerotic heart disease of native coronary artery without angina pectoris; M48.062 Spinal stenosis, lumbar region with neurogenic claudication; Z79.84 Long term (current) use of oral hypoglycemic drugs; M25.362 Other instability, left knee | CPT/HCPCS: 99204 ==

== ENCOUNTER 2022-03-30 09:03 | Outpatient (CLI) | payer BC, MEDICAID, SELFPAY ==
--- NOTE | 2022-03-30 09:11 | MR_ITS ---
WS: [email or web address] MRI LUMBAR SPINE NONCONTRAST HISTORY: LOW BACK PAIN COMPARISON: None available. TECHNIQUE: Sagittal and axial multisequence imaging is submitted. Central cervical disc protrusion at C5-6. Protrusion contacts the ventral cervical cord. Normal lumbar alignment with no compression fractures or marrow edema. Moderate disc space narrowing and desiccation at L5-S1. Conus terminates normally at L1-2 disc level. L1-L2: Normal. L2-L3: Normal. L3-L4: Very mild disc bulging and facet arthritis. No stenosis. L4-L5: Mild facet and ligamentum flavum hypertrophy. No stenosis. L5-S1: Large central extruded disc extends caudad to the disc level. Disc extends 1.4 cm in length be low the disc with significant deformity the ventral thecal sac with encroachment and displacement of the S1 nerve roots bilaterally. Small foraminal osteophytes contributing to degenerative changes and stenosis. There is severe central and bilateral subarticular recess stenosis and only mild foraminal stenosis. MR/MR lumbar spine wo con* [id number] IMPRESSION: 1. Large central disc extends caudad to the disc level at L5-S1 with significa nt encroachment into the thecal sac and displacement of the S1 nerve roots bila terally. Severe central and bilateral subarticular recess stenosis. Mild forami nal stenosis. 2. No additional stenosis.
== END 2022-03-30 09:04 | disposition home or self-care (01) ==
LOC: RAD 09:04
PROVIDERS: PCP Clinical Nurse Specialist Adult Health; Visit Provider Nurse Practitioner Family
DX: M54.50 Low back pain, unspecified (principal)
CPT/HCPCS: 72148

== ENCOUNTER 2022-04-20 09:20 | Outpatient (CLI) | payer BC, MEDICAID, SELFPAY ==
--- NOTE | 2022-04-20 09:45 | MR_ITS ---
WS: [email or web address] MRI HEAD WITHOUT CONTRAST TECHNIQUE: Sagittal T1, T2 axial, T2 axial FLAIR, axial and coronal T1 images, axial susceptibility w eighted imaging, axial diffusion weighted images, and coronal T2 images were obtained. 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 FINDINGS: No evidence of restricted diffusion to suggest acute ischemia. Ventricular system and basal cisterns are patent. Minimal hazy periventricular white matter changes more prominent about the RIGHT atrium a nd bilateral occipital horns. A few very tiny punctate focus of T2 hyperintensity in the supratentori al white matter. This is of indeterminate clinical significance and differential considerations as di scussed below. Normal posterior fossa. Normal vascular flow voids at the skull base. No extra-axial fluid collection s. No evidence of mass or mass effect. Mild mucosal thickening in the paranasal sinuses. Mastoid air cells are well aerated. No hemosiderin on the susceptibility weighted images. Normal optic chiasm and pituitary infundibulum. Temporal lobes and hippocampal formations are normal in appearance. Normal p osterior nasopharynx. Normal parapharyngeal fat. MR/MR head wo con* [id number] IMPRESSION: 1. No evidence restricted diffusion to suggest acute ischemia. 2. Mild periventricular hazy white matter changes more prominent about the RIG HT atrium and occipital horns bilaterally. 2 or 3 tiny foci of T2 hyperintensit y in the supratentorial white matter. Findings are nonspecific in a patient thi s age but can be seen with prior infectious or inflammatory etiologies includin g demyelinating disease and migraine headaches. Hypertension, diabetes, collage n vascular disease are additional less likely considerations. 3. No hemosiderin on susceptibly weighted images. 4. Temporal lobes and hippocampal formations are normal in appearance. 5. No other suspicious findings.
--- NOTE | 2022-04-20 10:30 | MR_ITS ---
WS: [email or web address] MRI CERVICAL SPINE NONCONTRAST TECHNIQUE: Sagittal T1, T2 and STIR imaging. Axial T2, gradient, and fiesta imaging. 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 FINDINGS: Straightening of the normal cervical lordosis. Disc bulging with RIGHT pericentral disc osteophyte pr otrusion C5-C6 and severe central canal stenosis. Spinal canal at this level measures approximately 5 mm. Indentation on the RIGHT ventral cervical cord. Associated myelomalacia within the cervical cord at this level with flattening. Severe bilateral bony foraminal narrowing with mild facet arthropathy . C2-C3: Mild disc osteophytic ridging. Slight effacement of ventral thecal sac. Mild LEFT and no signi ficant RIGHT foraminal narrowing. Mild facet arthropathy. C3-C4: Mild disc osteophytic ridging. Moderate LEFT and mild RIGHT bony foraminal narrowing. Mild autumn tral canal stenosis. Mild facet arthropathy. C4-C5: Mild disc osteophyte complex endplate ridging. Mild bilateral bony foraminal narrowing. Mild c entral canal stenosis. C5-C6: Described above. C6-C7: Mild disc osteophyte complex with endplate ridging. Mild central canal stenosis. Moderate RIGH T greater than LEFT foraminal narrowing. Mild facet arthropathy. C7-T1: LEFT eccentric disc osteophyte complex. Moderate to severe LEFT and mild RIGHT bony foraminal narrowing. Spinal canal is patent. Visualized brain stem structures: Normal. Prevertebral soft tissues: Normal. MR/MR cervical spin wo con* [id number] IMPRESSION: 1. 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 2. Severe central canal stenosis C5-C6 due to a RIGHT pericentral disc osteoph yte complex with indentation and flattening of the cervical cord. Associated my elomalacia in the cervical cord at this level. 3. Mild central canal stenosis C4-C5 and C6-C7. 4. Moderate to severe multilevel bony foraminal narrowing worse at LEFT C3-C4, bilateral C5-C6, RIGHT C6-C7, and LEFT C7-T1. Notified Eli Damon MD at 04/21/2022 9:22 AM.
--- NOTE | 2022-04-20 11:15 | MR_ITS ---
WS: [email or web address] MRI THORACIC SPINE WITHOUT CONTRAST TECHNIQUE: Sagittal T1, T2 and STIR imaging. Axial T2 imaging. Noncontrast imaging obtained. 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 FINDINGS: Mild thoracic curvature with mild thoracic kyphosis. Schmorl's nodes in the mid and lower thoracic sp ine. Mild central canal stenosis T9-T10 with minimal disc bulging and moderate facet arthropathy liga mentum flavum hypertrophy. Minimal chronic anterior wedging at T7-T9 with endplate Schmorl's nodes an d mild endplate degenerative edema. Minimal disc bulging at T8-T9 and T9-T10. Mild to moderate facet arthropathy in the lower thoracic spine. No disc extrusions. Normal caliber thoracic aorta. Adrenal glands are normal. Normal paravertebral soft tissues. MR/MR thoracic spin wo con* [id number] IMPRESSION: 1. Mild thoracic curve. Mild thoracic kyphosis. No acute compression fractures . 2. No high-grade central canal stenosis. Cord signal is normal. 3. Mild central canal stenosis T9-T10 with minimal disc bulging and moderate f acet arthropathy with ligamentum flavum hypertrophy. 4. Mild chronic anterior wedging with endplate Schmorl's nodes at T7-T9. 5. No other remarkable findings.
== END 2022-04-20 09:21 | disposition home or self-care (01) ==
PROVIDERS: PCP Clinical Nurse Specialist Adult Health; Visit Provider Specialist
DX: G83.9 Paralytic syndrome, unspecified (principal); M40.294 Other kyphosis, thoracic region; M48.04 Spinal stenosis, thoracic region; M51.44 Schmorl's nodes, thoracic region; M47.814 Spondylosis without myelopathy or radiculopathy, thoracic region; M48.02 Spinal stenosis, cervical region
CPT/HCPCS: 70551; 72141; 72146

== ENCOUNTER → 2022-06-13 15:23 | Outpatient (BNVA) | payer BC, MEDICAID, SELFPAY | PROVIDERS: PCP Clinical Nurse Specialist Adult Health; Visit Provider Orthopaedic Surgery | DX: M54.2 Cervicalgia (principal) | CPT/HCPCS: 72050 ==

== ENCOUNTER 2022-08-14 09:06 | Outpatient (CLI) | payer BC, MEDICAID, SELFPAY ==
--- NOTE | 2022-08-14 09:30 | USCV_ITS ---
Juan Hernandez Age: 46 Gender: M : 1975 Exam Date: 08/14/2022 09:27 Ordering Phys: Cheryl Downey MD ([email or web address]) Technologist: Exam Location: [facility] [place] Indication: Assess LV function, CHF BP: 140 / 80 HR: 89 Rhythm: Sinus Technical Quality: Adequate MEASUREMENTS (Male / Female) Normal Values 2D ECHO LV Diastolic Diameter PLAX 5.3 cm 4.2 - 5.9 / 3.9 - 5.3 cm LV Systolic Diameter PLAX 4.3 cm IVS Diastolic Thickness 1.1 cm 0.6 - 1.0 / 0.6 - 0.9 cm IVS Systolic Thickness 1.7 cm LVPW Diastolic Thickness 1.1 cm 0.6 - 1.0 / 0.6 - 0.9 cm LVPW Systolic Thickness 1.0 cm LVOT Diameter 2.1 cm LV Ejection Fraction 2D Teich 31.9 % LV Ejection Fraction MOD 2C 54.1 % LV Ejection Fraction 2C AL 53.7 % LA Diameter 3.6 cm Aorta at Sinotubular Diameter 2.4 cm M-MODE Aortic Annulus Diameter 3.9 cm LA Ao Ratio MM 1.0 MV E Point Septal Separation 1.2 cm DOPPLER AV Peak Velocity 104.0 cm/s LVOT Peak Velocity 69.0 cm/s AV Area Cont Eq vti 2.5 cm squared AV Area Cont Eq pk 2.2 cm squared MV Area PHT 5.0 cm squared Mitral E to A Ratio 0.8 MV E' Velocity 36.0 cm/s Mitral E to MV E' Ratio 6.9 Mitral E to LV E' Lateral Ratio 5.3 Mitral E to LV E' Septal Ratio 9.7 TR Peak Velocity 142.0 cm/s TR Peak Gradient 8.1 mmHg TV Peak E Velocity 85.0 cm/s Right Atrial Pressure 3.0 mmHg Pulmonary Artery Systolic Pressu 11.1 mmHg RV Acceleration Time 0.1 s FINDINGS Left Ventricle Normal left ventricular cavity size. Mildly decreased left ventricular systolic function. Left ventricular ejection fraction is estimated at 45 %. There is hypoknesis of mid to apical inferolateral and anterolateral humphries. Normal diastolic function. Normal diastolic function. Right Ventricle Normal right ventricular size and systolic function. Right Atrium Normal right atrial size. Left Atrium Normal left atrial size. Mitral Valve Thickened mitral valve. No mitral valve stenosis. No mitral valve regurgitation. Aortic Valve Structurally normal trileaflet aortic valve. Tricuspid Valve Structurally normal tricuspid valve. Trace tricuspid valve regurgitation. Pulmonic Valve Structurally normal pulmonic valve. Pericardium No pericardial effusion. Aorta Normal size aortic root and proximal ascending aorta. IVC Inferior vena cava not visualized. CONCLUSIONS 1. Normal left ventricular cavity size. Mildly decreased left ventricular systolic function. Left ventricular ejection fraction is estimated at 45 %. There is hypoknesis of mid to apical inferolateral and anterolateral humphries. Normal diastolic function. Normal diastolic function. 2. When compared to study dated 11/29/21, left ventricular systolic function seems to have improved slightly. Cheryl Downey MD (Electronically Signed) Final Date: 19 August 2022 23:12 S
[2022-08-14 10:27] LABS: Alanine Aminotransferase 37 U/L (0-41); Albumin Level 4.3 g/dL (3.5-5.2); Alkaline Phosphatase 125 U/L (40-130); Anion Gap 14.1 (5-19); Aspartate Amino Transferase 27 U/L (0-40); Blood Urea Nitrogen 13 mg/dL (6-20); Calcium 10.1 mg/dL (8.5-10.5); Carbon Dioxide 27 mmol/L (22-29); Chloride 102 mmol/L (98-107); Chol HDL Ratio 3.81 mg/dL (1.0-5.00); Cholesterol 118 mg/dL (0-200); Globulin 3.6 g/dL (1.3-4.6); Glomerular Filtration Rate 120.9 mL/min (90-130); Glucose 124 mg/dL (65-115); HDL Cholesterol 31 mg/dL (60-100); LDL Cholesterol Calculated 44 mg/dL (50-129); LDL Cholesterol Direct 61 mg/dL (0-100); LDL HDL Ratio 1.42 RATIO (0.00-3.22); Osmolality Calculated 290 mOsm/kg (285-295); Potassium 4.1 mmol/L (3.5-5.1); Sodium 139 mmol/L (136-145); Total Bilirubin 0.5 mg/dL (0.15-1.2); Total Protein 7.9 g/dL (6.6-8.7); Triglycerides 213 mg/dL (0-150)
[2022-08-14] MEDS: perflutren protein-a microsphr 0.22 mg/mL SDV 3 mL IV (10:58)
== END 2022-08-14 09:07 | disposition home or self-care (01) ==
PROVIDERS: PCP Registered Nurse; Visit Provider Internal Medicine Cardiovascular Disease
DX: I25.10 Atherosclerotic heart disease of native coronary artery without angina pectoris (principal); I50.9 Heart failure, unspecified
CPT/HCPCS: 80053; 80061; 83721; C8929; Q9956

== ENCOUNTER → 2022-09-12 15:34 | Outpatient (BNVA) | payer BC, MEDICAID, SELFPAY | PROVIDERS: PCP Registered Nurse; Referring Provider Registered Nurse; Visit Provider Orthopaedic Surgery | DX: M75.01 Adhesive capsulitis of right shoulder (principal); M75.02 Adhesive capsulitis of left shoulder | CPT/HCPCS: 73030 ==

== ENCOUNTER → 2022-12-21 09:58 | Outpatient (BNVA) | payer BC, MEDICAID, SELFPAY | PROVIDERS: PCP Registered Nurse; Visit Provider Physician Assistant | DX: G95.20 Unspecified cord compression (principal) | CPT/HCPCS: 36415; 80053; 85025 ==

== ENCOUNTER 2023-01-08 06:38 | Outpatient (CLI) | payer BC, MEDICAID, SELFPAY | END 2023-01-08 06:39 | disposition home or self-care (01) | LOC: RT 01-12 06:39 | PROVIDERS: PCP Nurse Practitioner Family; Visit Provider Orthopaedic Surgery | DX: Z01.818 Encounter for other preprocedural examination (principal) | CPT/HCPCS: 93005 ==

== ENCOUNTER 2023-01-15 09:27 | Inpatient (IN) | payer BC, MEDICAID, SELFPAY ==
[2023-01-08 09:06] VITALS: BMI 31.5
--- NOTE | 2023-01-08 09:22 | ECG_ITS ---
[facility] Test Date: 2023-01-08 Pat Name: Juan Hernandez Department: Room: Gender: Male Whey Department Operator: : 1975 Requested By: Sloane Matthews Order Number: [id number] Winifred MD: Calixto Arizmendi M.D. Measurements Intervals [place] Rate: 88 P: 50 RI: 170 QRS: -17 QRSD: 110 T: 18 QT: 365 QTc: 442 Interpretive Statements SINUS RHYTHM POSSIBLE ANTERIOR MYOCARDIAL INFARCTION , OF INDETERMINATE AGE [30 ms Q WAVE IN V3/V4, OR R < 0.2 mV IN V4] Compared to ECG 11/28/2021 22:41:42 T-wave abnormality no longer present Possible ischemia no longer present Myocardial infarct finding still present Electronically Signed On 01-08-2023 16:46:02 CDT by Calixto Arizmendi M.D. [id number]
--- NOTE | 2023-01-08 09:31 | ANES.PREANE2 ---
Pre-Anesthetic Assessment Height/Weight: Height 1.78 m Weight 99.79 kg Operation Date: 01/15/23 07:00 Proposed Procedures p Anterior Cervical Discectomy & Fusion ACDF w/ Anterior Interbody Fusion w/ Cage w/ Instrumentation w/ Allograft w/ Navigation(Not Applicable) - Yonatan Morillo, DO s C4-6 ACDF with C5 Corpectomy and Partial Corpectomy of C6:02124,10239 x2,89291 x2,28150,74872,34094,M47.12,G95.20(Not Applicable) - Yonatan Morillo, DO Familial anesthetic complications: None Social Tobacco and No alcohol Exam alert, oriented x 3, clear to auscultation bilaterally and regular rate & rhythm Airway Mallampati: Class III Dentition: false Pulmonary Chronic Obstructive Pulmonary Disease CV/HEM Coronary Artery Disease, Congestive Heart Failure 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 1. Distal Right Coronary Artery was treated with a Balloon, and Drug Eluting Stent. ? 2. There is obstructive? coronary artery disease with one vessel disease. ? 3. LVEDP of 42 mm Hg. Recommendations ? * Continue current medical management and risk factor modification. ? * Continue Plavix 75mg p.o. daily for at least one year. echo 08/28 CONCLUSIONS ?1. Normal left ventricular cavity size. Mildly decreased left ?ventricular systolic function. Left ventricular ejection ?fraction is estimated at 45 %. There is hypoknesis of mid to ?apical inferolateral and anterolateral humphries. Normal diastolic ?function. Normal diastolic function. ?2. When compared to study dated 11/29/21, left ventricular ?systolic function seems to have improved slightly. Metabolic Diabetes Mellitus and Hyperlipidemia Anesthetic Plan ASA status: 3 Anesthesia: General Risk of > 500 ml blood loss (7ml/kg in children): Yes, adequate IV access and fluids planned Medications/Allergies Home Medications Medication Instructions Recorded Confirmed Last Taken Type albuterol sulfate 90 mcg/actuation 2 puff inhalation Q4H PRN 11/28/21 01/08/23 Unknown History aerosol inhaler Shortness Of Breath cholecalciferol (vitamin D3) 125 10,000 unit PO DAILY 11/28/21 01/08/23 01/08/23 History mcg (5,000 unit) tablet (Vitamin D3) glipizide 10 mg tablet 10 mg PO BID 11/28/21 01/08/23 01/08/23 History metformin 1,000 mg tablet 1,000 mg PO BID 11/28/21 01/08/23 01/08/23 History aspirin 81 mg chewable tablet 81 mg PO DAILY 30 days #30 tabs 12/01/21 01/08/23 01/08/23 Rx (Children's Aspirin) atorvastatin 40 mg tablet 80 mg PO QAM 30 days #30 tabs 12/01/21 01/08/23 01/08/23 Rx carvedilol 3.125 mg tablet 3.125 mg PO BID@0900,2100 30 days 12/01/21 01/08/23 01/08/23 Rx #60 tabs clopidogrel 75 mg tablet 75 mg PO DAILY 30 days #30 tabs 12/01/21 01/08/23 01/08/23 Rx furosemide 20 mg tablet 20 mg PO 0900 30 days #30 tabs 12/01/21 01/08/23 01/08/23 Rx nitroglycerin 0.4 mg sublingual 0.4 mg sublingual Q5M PRN chest 12/01/21 01/08/23 Unknown Rx tablet (Nitrostat) pain 30 days #30 tabs dapagliflozin 5 mg tablet (Farxiga) 10 mg PO DAILY 01/13/22 01/08/23 01/08/23 History Walker #1 ea 06/13/22 12/21/22 Unknown Rx Wheelchair #1 ea 06/13/22 12/21/22 Unknown Rx tramadol 50 mg tablet 50 mg PO BID PRN Pain 06/13/22 01/08/23 Unknown History amlodipine 2.5 mg tablet 2.5 mg PO DAILY 07/14/22 01/08/23 01/08/23 History docusate sodium 100 mg capsule 100 mg PO DAILY PRN Constipation 07/14/22 01/08/23 01/07/23 History (Stool Softener) lisinopril 10 mg tablet 30 mg PO DAILY 07/14/22 01/08/23 01/08/23 History intraoperative neuromonitoring #1 ea 12/29/22 Unknown Rx dulaglutide 0.75 mg/0.5 mL 0.75 mg SUBCUT DAILY 01/08/23 01/08/23 01/04/23 History subcutaneous pen injector (Trulicity) pregabalin 50 mg capsule mg 01/08/23 01/08/23 History Allergies Allergy/AdvReac Type Severity Reaction Status Date / Time No Known Allergies Allergy Verified 01/08/23 08:55 [facility] Anesthesia Medical History Abnormal ECG CAD (coronary artery disease) Chest pain CHF (congestive heart failure), NYHA class III COPD (chronic obstructive pulmonary disease) COPD (chronic obstructive pulmonary disease) DDD (degenerative disc disease), lumbosacral Diabetes Dyslipidemia Elevated troponin Hypertension Hypertension Low back pain radiating to both legs Lumbosacral radiculopathy No pertinent family history Obesity Uncontrolled hypertension Family History Brother Cancer Sister Cancer Father Diabetes Hypertension Stroke Mother Diabetes Social History Smoking and tobacco status: never smoked Data Anesthesia Cardiac Studies: Echocardiogram 08/14/22
[2023-01-15] VITALS (20 sets, daily range): BP systolic 115–170; BP diastolic 87–113; PULSE 92–103; RESP 16–18; TEMP 36.1–36.6; O2SAT 90–99
--- NOTE | 2023-01-15 | XR_ITS ---
WS: [id number] XR cervical spine 3V* [id number] REASON FOR EXAM: adcf C4-6 FINDINGS: AP and lateral cervical images in surgery. Anterior plate and screw fixation C4-C6 with interbody fusion devices at C4-C5 and C5-C6. Surgical appliances are in proper position and alignment and intact. XR/XR cervical spine 3V* [id number] IMPRESSION: Intraoperative cervical spine as above.
[2023-01-15 06:22] LABS: Glucose Point of Care 148 mg/dL (70-110)
--- NOTE | 2023-01-15 06:28 | W.PM.OPSUD ---
Surgery/Procedure H&P Update DATE OF PROCEDURE: January 15, 2023 DATE H&P PERFORMED: 12/21/22 H&P UPDATE INFORMATION: I have reviewed H&P completed within last 30 days, I have examined patient prior to procedure and No changes to prior documentation PREOP DIAGNOSIS: Cervical spondylosis with myelopathy and radiculopathy PLANNED PROCEDURE: Operation Date: 01/15/23 07:00 Proposed Procedures p Anterior Cervical Discectomy & Fusion ACDF w/ Anterior Interbody Fusion w/ Cage w/ Instrumentation w/ Allograft w/ Navigation(Not Applicable) - Yonatan Morillo DO s C4-6 ACDF with C5 Corpectomy and Partial Corpectomy of C6:53756,33088 x2,10780 x2,72624,28342,42546,M47.12,G95.20(Not Applicable) - Yonatan Morillo DO
[2023-01-15] MEDS: sodium chloride 0.9% 1,000 ML 30 ML IV (06:31)
[2023-01-15] MEDS: ceFAZolin 2,000 MG in sodium chloride 0.9% (plus) 50 ML 100 MG IV ×3 (06:59→22:38)
--- NOTE | 2023-01-15 07:17 | P.ANESUD_ITS ---
Pre-Anesthetic Update Pre-Anesthetic Assessment: Date of Surgery/Procedure: 01/15/23 Preop Diamond gnosis: Cervical spondylosis with myelopathy and radiculopathy Proposed Procedure: Operation Date: 01/15/23 07:00 Proposed Procedures p Anterior Cervical Discectomy & Fusion ACDF w/ Anterior Interbody Fusion w/ Cage w/ Instrumentation w/ Allograft w/ Navigation(Not Applicable) - Yonatan Morillo, DO s C4-6 ACDF with C5 Corpectomy and Partial Corpectomy of C6:05820,57735 x2,27252 x2,72755,77952,02943,M47.12,G95.20(Not Applicable) - Yonatan Morillo, DO Any changes to Pre-Anesthetic Assessment?: No Last Intake: Intake Last Liquid Date 01/14/23 Last Liquid Time 21:00 Last Solid Date 01/14/23 Last Solid Time 19:00 Vitals: Temperature 97.4 F L 01/15/23 06:10 Temperature Source Temporal Artery S can 01/15/23 06:10 Pulse Rate 98 01/15/23 06:10 Respiratory Rate 16 01/15/23 06:10 Blood Pressure 150/96 01/15/23 06:10 Blood Pressure Estela n 114 01/15/23 06:10 Pulse Oximetry 99 01/15/23 06:10 Oxygen Delivery Me thod Room Air 01/15/23 06:10 Exam: Pre-Anes Outpt Exam: alert, oriented x 3, clear to auscultation bilaterally and regular rate & rhythm Cardiac Studies: Echocardiogram 08/14/22
[2023-01-15] MEDS: lidocaine-epi 2% 20 mL INJ INJECTION (07:35)
--- NOTE | 2023-01-15 09:12 | P.OP_ITS ---
Operative Report Date of procedure: January 15, 2023 Pre-op diagnosis: Preop Diagnosis Cervical spondylosis with myelopathy and radiculopathy Post-op diagnosis: same Procedure done: 1. Anterior diskectomy C4/5 2. Anterior discectomy C5/6 3. Insertion of cage C4/5 4. Insertion of Cage C5/6 5. Instrumentation with anterior plate from C4-6 6. Use of allograft Surgeon: Yonatan Morillo Raise Miner: Chaitanya Estevez Raise Miner: The surgical services tech, Chaitanya Estevez, SERAFIN was needed for his expertise under the microscope. He was important and necessary throughout the procedure to complete in a safe and timely manner. He assisted with patient positioning prepping and draping tissue retraction suctioning of the operative field protection of the dural sac and tissue closure Estimated blood loss (mL): 50 Procedure: 1. Anterior diskectomy C4/5 2. Anterior discectomy C5/6 3. Insertion of cage C4/5 4. Insertion of Cage C5/6 5. Instrumentation with anterior plate from C4-6 6. Use of allograft The patient was taken to the operating room, where he underwent general endotracheal anesthesia without complications. He was then positioned supine on the operating table, and all areas of impingement were well padded. The arms were carefully padded and tucked at his sides. A roll was placed between the shoulder blades.. An x-ray was done to determine the appropriate level for the skin incision. The entire neck was then sterilely prepped and draped in the usual fashion. Neuromonitoring was attached prior to prepping. A transverse skin incision was made and carried down to the platysma muscle. This was then split in line with its fibers. Blunt dissection was carried down medial to the carotid sheath and lateral to the trachea and esophagus until the anterior cervical spine was visualized. A needle was placed into a disc and an x-ray was done to determine its location. The longus colli muscles were then elevated bilaterally with the electrocautery unit. Self-retaining retractors were placed deep to the longus colli muscle. Attention was brought to the C4/5 level that was confirmed on x-ray. A caspar pin was placed into the C4 vertebrae and the C5 vertebrae. The disk space was t hen distracted. The microscope was then brought in. A radical anterior discectomies were performed at C4/5. This included complete removal of the anterior annulus, nucleus, and posterior annulus. The posterior longitudinal ligament was removed as were the posterior osteophytes. Foraminotomies were then accomplished bilaterally. This was done using a high speed solange, kerrison rongeurs and curretes Once all of this was accomplished, the curved currette was used to check for any residual compression. The central canal was wide open as were the foramen. A high-speed bur was used to remove the cartilaginous endplates above and below the interspace. Bleeding cancellous bone was exposed. The disc space were measured and appropriate size cage were placed sterilely onto the field. Allograft graft was packed into the cages. The cage was then placed and there was good juxtaposition against the bleeding decorticated surfaces and good distraction of each interspace. Attention was brought to the next interspace. The [place] pins were removed. Bone wax was used to prevent any bleeding from occurring at the pin sites. Attention was brought to the C5/6 level that was confirmed on x-ray. A caspar pin was placed into the C5 vertebrae and the C6 vertebrae. The disk space was then distracted. The microscope was then brought in. A radical anterior discectomies were performed at C5/6. This included complete removal of the anterior annulus, nucleus, and posterior annulus. The posterior longitudinal ligament was removed as were the posterior osteophytes. Foraminotomies were then accomplished bilaterally. This was done using a high speed solange, kerrison rongeurs and curretes Once all of this was accomplished, the curved currette was used to check for any residual compression. The central canal was wide open as were the foramen. A high-speed bur was used to remove the cartilaginous endplates above and below the interspace. Bleeding cancellous bone was exposed. The disc space were maría ured and appropriate size cage were placed sterilely onto the field. Allograft graft was packed into the cages. The cage was then placed and there was good juxtaposition against the bleeding decorticated surfaces and good distraction of each interspace. Attention was brought to the next interspace. The [place] pins were removed. Bone wax was used to prevent any bleeding from occurring at the pin sites. The appropriate size anterior cervical locking plate was chosen and bent into gentle lordosis. Two screws were then placed into each of the vertebral bodies at C4,C5 and C6. There was excellent purchase. A final x-ray was done confirming good position of the hardware and Cages. The locking screws were then applied, also with excellent purchase. Following a final copious irrigation, there was good hemostasis and no dural leaks. The carotid pulse was strong. The wounds were then closed in layers using 2-0 Vicryl suture for the platysma muscle, 2-0 Vicryl suture for the subcutaneous tissue, and 4-0 monocryl suture in a subcuticular skin closure. Glue was placed followed by application of a sterile dressing. The drain was hooked to bulb suction. A soft collar was applied. The patient was then carefully returned to the supine position on his hospital bed where he was reversed and extubated and taken to the recovery room having tolerated the procedure well.
--- NOTE | 2023-01-15 10:43 | PC.NURSE ---
Patient arrived to floor via bed, family at bedside, patient pretty sleepy with minimal pain and pulling on collar and twisting it. Educated patient and family that the collar has to be left alone for patients safety. Re-adjusted collar appropriately. Trachea is midline with minimal swelling, able to open mouth and stick out tongue to access throat. Minimal swelling to throat, VSS on room air. Hemavac in place, patent and compressed. Room clean and clutter free with call light within reach and education provided to use call light and tv. Will continue to monitor.
[2023-01-15 11:20] LABS: Glucose Point of Care 223 mg/dL (70-110)
[2023-01-15] MEDS: ketorolac 30 mg/mL INJ IVP (13:00)
--- NOTE | 2023-01-15 13:37 | ANE.PACU2 ---
Inpatient post-anesthesia follow up: Airway intact: Yes Vital signs: Temperature 97.9 F Pulse Rate 94 Respiratory Rate 18 Blood Pressure 155/111 Pulse Oximetry 94 Oxygen Delivery Me thod Room Air Oxygen Flow Rate 6 Fraction of Inspir ed Oxygen Hydration adequate: Yes Nausea and vomiting: No Pain level: 4 Mental status: Baseline
[2023-01-15] MEDS: morphine 4 mg/mL SDV 1 mL 2 MG IVP (15:38)
[2023-01-15] MEDS: pregabalin 50 mg Capsule PO (17:16)
[2023-01-15] MEDS: docusate sodium 100 mg Capsule PO (17:16)
[2023-01-15] MEDS: metformin 500 mg Tablet 1000 MG PO (17:16)
[2023-01-15] MEDS: carvedilol 3.125 mg Tablet PO (20:17)
[2023-01-15] MEDS: HYDROcodone-acetaminophen 5-325 mg Tablet PO (20:21)
[2023-01-16] VITALS: BP 128/85; PULSE 91; RESP 17; TEMP 36.6; O2SAT 93
[2023-01-16] MEDS: HYDROcodone-acetaminophen 5-325 mg Tablet PO (00:31)
[2023-01-16] MEDS: ketorolac 30 mg/mL INJ IVP (01:35)
[2023-01-16 03:53] VITALS: BP 130/84; PULSE 74; RESP 17; TEMP 36.5; O2SAT 95
[2023-01-16] MEDS: atorvastatin 40 mg Tablet 80 MG PO (06:00)
[2023-01-16] MEDS: ceFAZolin 2,000 MG in sodium chloride 0.9% (plus) 50 ML 100 MG IV (06:01)
--- NOTE | 2023-01-16 06:51 | P.PN_ITS ---
Subjective Subjective: POD 1 Patient sitting at the bedside reports arm pain has improved. Mild swallowing difficulty no voice changes. Denies any headaches, shortness of breath, or chest pain. Vitals/I&O/Wt Last Vital Signs Temp 97.7 F 01/16/23 03:53 Pulse 74 01/16/23 03:53 Resp 17 01/16/23 03:53 BP 130/84 01/16/23 03:53 Pulse Ox 95 01/16/23 03:53 O2 Del Method Room Air 01/16/23 03:53 O2 Flow Rate 6 01/15/23 09:56 01/15/23 01/15/23 01/16/23 14:59 22:59 06:59 Intake Total 170 / 170 170 / 340 290 / 630 Output Total 75 / 75 20 / 95 15 / 110 Balance 95 / 95 150 / 245 275 / 520 Physical Exam Narrative: Patient is alert and oriented x3 with a good general appearance normal mood and affect. Mildly tender with palpation about the incisional site. Incision appears to be clean and dry without signs of erythema or drainage. No signs of infection. Good motor strength throughout both upper extremities. Appears to fire in all motor groups with 5/5 strength. Hands are warm good cap refill in all digits. Normal sensation to light touch in all dermatomal areas. Urinary Catheter Management: [place]: Cath Placed During This Visit: yes, but has since been removed by the nurse Reason for Continuing Indwelling Catheter: Decision to DC Catheter Urinary Catheter Date of Insertion: 01/15/23 Urinary Catheter Time of Insertion: 07:15 Date Urinary Catheter Removed: 01/15/23 Time Urinary Catheter Discontinued: 15:00 A&P Assessment and plan (1) Status post cervical spinal fusion: At this point we will discontinue the Hemovac drain. Encourage mobilization with physical therapy. Continue [place]ally J collar. Encouraged tobacco cessation. Discharge home with incentive spirometer for pulmonary toilet. We will see him back in the office in 1 week's time for reevaluation wound check. (2) Tobacco dependence: Attestations Medical Necessity Statement*: Discharge home this morning after Hemovac drain discontinued. Coding Level of Care Code Acute Code for Chg Fwd Diagnoses Status post cervical spinal fusion Z98.1 Tobacco dependence F17.200
[2023-01-16 07:28] VITALS: BP 143/90; PULSE 16; RESP 18; TEMP 36.4; O2SAT 94
--- NOTE | 2023-01-16 07:42 | PC.PHAR ---
Addendum entered by Cora Dey 01/16/23 07:47: trulicity should be every 7 days ext shows filled 01/04/23 1/2ml [id number] also shows prilosec 40mg bid filled 11/27/22 30d/s Original Note: unable to update medication list pt has discharge orders and discharge medications entered-
--- NOTE | 2023-01-16 07:51 | PC.NURSE ---
This nurse with Ian MARIN at bedside removed hemavac with approx 10ml drainage in bag. Occlusive dressing placed with xerform and tagaderm and collar back in place. Patient tolerated vac removal well. Will monitor for 30 minutes and note any changes.
[2023-01-16 08:00] VITALS: PULSE 86; RESP 18; O2SAT 96
[2023-01-16] MEDS: amlodipine 5 mg Tablet 2.5 MG PO (09:21)
[2023-01-16] MEDS: clopidogrel 75 mg Tablet PO (09:22)
[2023-01-16] MEDS: metformin 500 mg Tablet 1000 MG PO (09:22)
[2023-01-16] MEDS: aspirin 81 mg Chew Tablet PO (09:22)
[2023-01-16] MEDS: lisinopril 10 mg Tablet 30 MG PO (09:22)
[2023-01-16] MEDS: pregabalin 50 mg Capsule PO (09:22)
[2023-01-16] MEDS: FUROsemide 20 mg Tablet PO (09:22)
[2023-01-16] MEDS: docusate sodium 100 mg Capsule PO (09:22)
[2023-01-16] MEDS: cholecalciferol (vitamin D3) 5,000 unit Tablet 10000 UNIT PO (09:22)
[2023-01-16] MEDS: carvedilol 3.125 mg Tablet PO (09:25)
[2023-01-16 09:31] VITALS: PULSE 86; RESP 18; O2SAT 96
--- NOTE | 2023-01-16 10:31 | PC.CHAP ---
Pastoral Care Encounter/Spiritual Assessment Type of Contact [] Declined pile driving nozzleman visit [] Patient/Family/Request visit [] Outpatient visit [] Follow-up visit [] Physician referral [] Code/Alert [x] Routine visit [] Staff referral [] Actively dying [] Patient sleeping [] Family support [] [] Out of room [] Palliative care [] [] Receiving care in room [] Pre-surgical visit [] Trauma [] Long length of stay [] ICU visit [] Other: Relational/Emotional Strength [] Patient feels connected with others/family/visitors/staff [] Distress [] Loneliness/isolation [] Abandonment Spirituality of Patient [] Person of Monica [] Attends Anglican of their [place] [] Believes in Prayer [] Reads Bible or Hinduism materials [x] There are Spiritual issues to be addressed Youth Leader Interventions [] Prayer [] Active listening [x] Non-anxious presence [] Spiritual/emotional support [] Crisis/trauma care [] Spiritual counseling [] Bereavement support [] Provided bereavement packet [] Provided Bible/devotional materials [] Provided toy/stuffed animal, coloring book to patient or family member [] Provided Communion [] Anointing/[place] [] Salvation [] Completed spiritual assessment [] Other: Impact on Illness or Injury [] Angry [] Fearful [] Anxious [] Often cries [] Exhaustion [] Unable to work [] Unable to attend jain [] Unable to walk/stand [] Unable to read [] Unable to drive [] Unable to eat/drink [] Unable to sleep [] Unable to be with family [] Patient intubated [] Other: Summary Time spent with patient 5 min
--- NOTE | 2023-01-17 12:27 | PM.DCS ---
Discharge Providers Date of Admission: 01/15/23 09:27 Date of Discharge: January 16, 2023 Attending Provider at Admission: Yonatan Morillo DO Attending Provider at Discharge: Yonatan Morillo DO Primary Care Provider: Britni Moeller NP Diagnoses at Discharge Discharge Diagnosis (1) Status post cervical spinal fusion: Status: Acute (2) Tobacco dependence: Status: Acute Physical Exam Urinary Catheter Management: P[place]: Cath Placed During This Visit: yes, but has since been removed by the nurse Reason for Continuing Indwelling Catheter: Decision to DC Catheter Urinary Catheter Date of Insertion: 01/15/23 Urinary Catheter Time of Insertion: 07:15 Date Urinary Catheter Removed: 01/15/23 Time Urinary Catheter Discontinued: 15:00 Discharge Data Studies Completed and Pending Completed Studies During Hospitalization Category Date Time Status XR cervical spine 3V* [id number] Routine Exams 01/15/23 Completed Radiology Impressions Cervical Spine X-Ray 01/15/23 00:00 IMPRESSION: Intraoperative cervical spine as above. Laboratory Results POC Glucose 223 mg/dL (70-110) H 01/15/23 11:16 Vitals Last Vital Signs Temp 97.5 F L 01/16/23 07:28 Pulse 86 01/16/23 09:31 Resp 18 01/16/23 09:31 BP 143/90 01/16/23 07:28 Pulse Ox 96 01/16/23 09:31 O2 Del Method Room Air 01/16/23 08:00 O2 Flow Rate 0 01/16/23 08:00 Discharge Plan Discharge Patient Disposition: Home Condition: Stable Prescriptions: New hydrocodone-acetaminophen 5-325 mg Tablet 1 - 2 tab PO Q4H PRN (Reason: Postoperative pain) Qty: 40 0RF Continued Farxiga 5 mg tablet 10 mg PO DAILY amlodipine 2.5 mg tablet 2.5 mg PO DAILY lisinopril 10 mg tablet 30 mg PO DAILY tramadol 50 mg tablet 50 mg PO BID PRN (Reason: Pain) (DME) Wheelchair See Rx Instructions .Route .MEDSUPPLY Qty: 1 0RF Rx Instructions: Until no longer needed (DME) Walker See Rx Instructions .Route .MEDSUPPLY Qty: 1 0RF Rx Instructions: Until no longer needed (DME) intraoperative neuromonitoring See Rx Instructions .Route .MEDSUPPLY Qty: 1 0RF Rx Instructions: As directed glipizide 10 mg tablet 10 mg PO BID metformin 1,000 mg tablet 1,000 mg PO BID Hold Instructions: Resume on 12/07/21. albuterol sulfate 90 mcg/actuation HFA aerosol inhaler 2 puff INHALATION Q4H PRN (Reason: Shortness Of Breath) cholecalciferol (vitamin D3) [Vitamin D3] 125 mcg (5,000 unit) Tablet 10,000 unit PO DAILY atorvastatin 40 mg Tablet 80 mg PO QAM 30 Days Qty: 30 3RF clopidogrel 75 mg Tablet 75 mg PO DAILY 30 Days Qty: 30 3RF carvedilol 3.125 mg Tablet 3.125 mg PO BID@0900,2100 30 Days Qty: 60 2RF aspirin [Children's Aspirin] 81 mg Tablet,Chewable 81 mg PO DAILY 30 Days Qty: 30 3RF furosemide 20 mg Tablet 20 mg PO 0900 30 Days Qty: 30 3RF nitroglycerin [Nitrostat] 0.4 mg tablet, sublingual 0.4 mg sublingual Q5M PRN (Reason: chest pain) 30 Days Qty: 30 3RF Rx Instructions: do not exceed 3 doses per episode Stool Softener 100 mg capsule 100 mg PO DAILY PRN (Reason: Constipation) pregabalin 50 mg capsule 50 mg PO BID Trulicity 0.75 mg/0.5 mL pen injector 0.75 mg SUBCUT DAILY Discharge Orders: Discharge Order (Routine); Ordered 01/16/23 Ordered By: Chaitanya Estevez Referrals: Yonatan Morillo DO [Physician] - 01/23/23 8:30 am Britni Moeller NP [Primary Care Provider] - 01/19/23 10:45 am Discharge Diet: Advance as tolerated Discharge Activity: Limit activity as instructed Patient Instructions: Hydrocodone/Acetaminophen (By mouth), Cervical Spinal Stenosis (DC), Opioid Safety Activity Restrictions/Additional Instructions: Thank you for choosing [facility] for your care! The following is a list of instructions, from your provider, to follow upon your discharge to ensure you have the optimal recovery from your recent injury or surgery. Anterior Cervical Discectomy and Fusion: What to Expect at Home Your Recovery Follow-up care is a beach part of your treatment and safety. Be sure to make and go to all appointments, and call your doctor if you are having problems. If you do not already have a follow-up appointment made, call office in the next 1-3 days to make follow up appointment for 1-2 weeks at [phone]. It is also a good idea to know your test results and keep a list of the medicines you take. You can expect your neck to feel stiff or sore after surgery. This should improve in the weeks after surgery. But it may take 4 to 6 months for you to get better completely. You may have trouble sitting or standing in one position for very long and may need pain medicine in the weeks after your surgery. It may take 4 to 6 weeks to get back to your usual activities, but it may depend on what kind of surgery you had. Your throat will feel sore and it may be difficult to swallow for the first 3 days after your surgery. As long as you can get liquids down without difficulty, this should slowly improve, otherwise call our office or seek medical attention if it becomes increasingly difficult to get anything down including liquids. Avoid hot liquids for first 3-5 days. Soothing foods/liquids such as jello, pudding, and luke warm soups are recommended until swallowing improves. Staying elevated will also help, it's advised you keep propped up at while sleeping to help reduce the swelling. You may use an ice pack directly on your incision or around it on the front of your neck, using a cloth to protect your skin; and a heating pad to the back of your neck as needed. Do not use over the counter anti-inflammatory medications (Ibuprofen, Motrin, Aleve, Advil, etc) Taking these meds after having a fusion can delay fusion rates, we recommend you avoid them for the first 3 months after your surgery[address] Dr. Morillo may advise you to work with a physical therapist to strengthen the muscles around your neck and back - this will be discussed at your follow - up appointments. The pain or numbness you were having in your arms before surgery should get better or go away completely. This care sheet gives you a general idea about how long it will take for you to recover. But each person recovers at a different pace. Follow the steps below to get better as quickly as possible. How can you care for yourself at home? Activity ? Rest when you feel tired. Getting enough sleep will help you recover. ? Try to walk each day. Start by walking a little more than you did the day before. Bit by bit, increase the amount you walk. Walking boosts blood flow and helps prevent pneumonia and constipation. Walking may also decrease your muscle soreness after surgery. ? No lifting anything that is more that 5 pounds. This may include heavy grocery bags and milk containers, a heavy briefcase or backpack, cat litter or dog food bags, a child, or a vacuum coke still cleaner. ? Avoid strenuous activities, such as bicycle riding, jogging, weightlifting, or aerobic exercise, until your doctor says it is okay. ? Do not drive until your follow-up visit after your surgery, or until your doctor says it isokay. ? Avoid taking long car trips for 2 to 4 weeks after surgery. Your neck may become tired and painful from sitting too long in one position. ? You will probably need to take 4 to 6 weeks off from work. It depends on the type of work you do and how you feel. ? You may have sex as soon as you feel able, but avoid positions that put stress on your neck or cause pain. Diet ? You can eat your normal diet. If your stomach is upset, try bland, low-fat foods like plain rice, broiled chicken, toast, and yogurt ? Drink plenty of fluids. If you have kidney, heart, or liver disease and have to limit fluids, talk with your doctor before you increase the amount of fluids you drink. ? You may notice that your bowel movements are not regular right after your surgery. This is common. Try to avoid constipation and straining with bowel movements. You may want to take a fiber supplement every day. If you have not had a bowel movement after a couple of days, ask your doctor about taking a mild laxative. Medicines ? Take pain medicines exactly as directed. 1. If Dr. Morillo gave you a prescription medicine for pain, take lt as prescribed. 2. Do not take two or more pain medicines at the same time unless the doctor told you to. Many pain medicines have acetaminophen, which is Tylenol. Too much acetaminophen {Tylenol) can be harmful. 3. If you think your pain pill is making you sick to your stomach: 4. Take your pills after meals (unless your doctor has told you not to). 5. Ask your Dr. for a different pain pill. Incisioncare ? Remove your dressing 48 hours after your surgery. Ok to shower and get the incision wet. Do not overtly wash your incision. When done, pad dry, leave open to air thereafter. Avoid creams and ointments directly on your incision. ? Your sutures in the incision will dissolve and fall out on their own. ? Keep the area clean and dry. You may cover it with a gauze bandage if it weeps or rubs against clothing; if you choose to do this, change the dressing everyday. Other instructions ? Use a heating pad, hot water bottle, or gentle massage on your back to reduce stiffness. Avoid putting heat on your incision When should you call for help? ? Call 911 anytime you think you may need emergency care. For example, call if: ? You pass out (lose consciousness). ? You have sudden chest pain and shortness of breath, or you cough upblood. ? You cannot swallow. ? You have severe pain in your neck or back. ? Call your Dr. or seek immediate medical care if: ? You have pain that does not get better after you take pain pills. ? You have loose stitches, or your incision comes open. ? You have blood or fluid draining from the incision. ? You have signs of infection, such as: 1. Increased pain, swelling, warmth, or redness. 2. Red streaks leading from the site. 3. Pus draining from the site. 4. Swollen lymph nodes in your neck or armpits. 5. A fever. ? You have severe pain in your arms. ? You have new or increased weakness or numbness in your arms. ? Watch closely for any changes in your health, and be sure to contact your doctor if: ? You do not have a bowel movement after taking a laxative. Discharge Attestations Time Spent in Discharge Care*: less than 30 min Quality Metrics Clinical Quality Measures [ No reported AMI, CVA or VTE this stay] Coding Level of Care Code Acute Code for Chg Fwd Diagnoses Status post cervical spinal fusion Z98.1 Tobacco dependence F17.200
== END 2023-01-16 11:41 | disposition home or self-care (01) | DRG 473 ==
LOC: MEDSURG 14:20
PROVIDERS: Admitting Provider Orthopaedic Surgery; PCP Nurse Practitioner Family; Visit Provider Orthopaedic Surgery
PROC: 0RB30ZZ Excision of Cervical Vertebral Disc, Open Approach (ICD-10-PCS; CPT 22551; principal; 2023-01-15 07:00)
PROC: 0RG20A0 Fusion of 2 or more Cervical Vertebral Joints with Interbody Fusion Device, Anterior Approach, Anterior Column, Open Approach (ICD-10-PCS; 2023-01-15 07:00)
DX: M47.12 Other spondylosis with myelopathy, cervical region (principal); M47.22 Other spondylosis with radiculopathy, cervical region; J44.9 Chronic obstructive pulmonary disease, unspecified; I25.10 Atherosclerotic heart disease of native coronary artery without angina pectoris; E78.5 Hyperlipidemia, unspecified; E11.9 Type 2 diabetes mellitus without complications; I11.0 Hypertensive heart disease with heart failure; I50.9 Heart failure, unspecified; E66.9 Obesity, unspecified; Z68.31 Body mass index [BMI] 31.0-31.9, adult; M51.17 Intervertebral disc disorders with radiculopathy, lumbosacral region; Z79.85 Long-term (current) use of injectable non-insulin antidiabetic drugs; Z79.84 Long term (current) use of oral hypoglycemic drugs; Z79.02 Long term (current) use of antithrombotics/antiplatelets; Z79.82 Long term (current) use of aspirin
CPT/HCPCS: 36415; 36416; 51702; 72040; 76000; 82962; 97161; C1713; C1763; C9359; J0330; J0690; J1100; J1170; J1790; J1885; J2250; J2270; J2405; J2704; J2710; J3010; J3490; J7030; L0172

== ENCOUNTER → 2023-01-30 14:24 | Outpatient (BNVA) | payer BC, MEDICAID, SELFPAY | PROVIDERS: PCP Nurse Practitioner Family; Visit Provider Physician Assistant | DX: Z98.1 Arthrodesis status (principal) | CPT/HCPCS: 72040 ==

== ENCOUNTER → 2023-02-27 14:23 | Outpatient (BNVA) | payer BC, MEDICAID, SELFPAY | PROVIDERS: PCP Nurse Practitioner Family; Visit Provider Physician Assistant | DX: Z98.1 Arthrodesis status (principal) | CPT/HCPCS: 72040 ==

== ENCOUNTER → 2023-04-12 12:39 | Outpatient (BNVA) | payer BC, MEDICAID, SELFPAY | PROVIDERS: PCP Nurse Practitioner Family; Visit Provider Orthopaedic Surgery | DX: Z98.1 Arthrodesis status (principal); Z47.89 Encounter for other orthopedic aftercare | CPT/HCPCS: 72040 ==

== ENCOUNTER → 2023-07-05 13:20 | Outpatient (BNVA) | payer BC, MEDICAID, SELFPAY | PROVIDERS: PCP Nurse Practitioner Family; Visit Provider Orthopaedic Surgery | DX: M47.12 Other spondylosis with myelopathy, cervical region (principal); M47.22 Other spondylosis with radiculopathy, cervical region; Z98.1 Arthrodesis status | CPT/HCPCS: 72040 ==

== ENCOUNTER → 2023-10-05 13:39 | Outpatient (BNVA) | payer BC, MEDICAID, SELFPAY | PROVIDERS: PCP Nurse Practitioner Family; Visit Provider Orthopaedic Surgery | DX: Z98.1 Arthrodesis status (principal); M54.9 Dorsalgia, unspecified | CPT/HCPCS: 72040; 72110; 80053; 81003; 83036; 85025 ==

== ENCOUNTER 2023-10-11 10:45 | Outpatient (CLI) | payer BC, MEDICAID, SELFPAY ==
--- NOTE | 2023-10-11 11:00 | CT_ITS ---
WS: [id number] CT CERVICAL SPINE TECHNIQUE: Noncontrast CT of the cervical spine with coronal and sagittal reformatted images. CLINICAL INFORMATION: neck pain COMPARISON: MRI 04/20/2022 DLP: 252.[address] scans at [facility] use at least one of these dose optimization techniques: automated e xposure control; mA and/or kV adjustment per patient size (includes targeted exams where dose is matc hed to clinical indication); or iterative reconstruction. FINDINGS: Straightening of the normal cervical lordosis. Prior postoperative changes ACDF C4-C6. No evidence of hardware loosening. Interbody fusion grafts C4-C5 and C5-C6 with mild subsidence. C2-C3: Tiny central protrusion. Mild facet arthropathy. Spinal canal and foramen are patent. C3-C4: Disc osteophyte complex. Mild central canal stenosis. Moderate RIGHT greater than LEFT foramin al narrowing. Moderate facet arthropathy. C4-C5: Endplate osteophytic ridging. Mild central canal stenosis. Mild LEFT and no significant RIGHT foraminal narrowing. Moderate facet arthropathy. C5-C6: Endplate osteophytic ridging. Moderate central canal stenosis. Mild foraminal narrowing. Moder ate facet arthropathy. C6-C7: Disc osteophyte complex. Mild foraminal narrowing. Mild central canal stenosis. C7-T1: No significant disc bulging. Spinal canal and foramen are patent. Visualized posterior nasopharynx: Normal. Prevertebral soft tissues: Normal. Mastoid air cells are well aerated. IMPRESSION: 1. Prior postoperative changes ACDF C4-C6. No evidence of screw loosening. 2. Interbody fusion graft C4-C5 and C5-C6 with mild subsidence worse at C5-6. 3. Mild central canal stenosis C3-C4 and C4-C5. Moderate central canal stenosis C5-6 due to endplate osteophytic ridging 4. Multilevel bony foraminal narrowing worse at RIGHT C3-C4 and LEFT C4-5,
== END 2023-10-11 10:46 | disposition home or self-care (01) ==
LOC: RAD 10:45
PROVIDERS: PCP Nurse Practitioner Family; Visit Provider Orthopaedic Surgery
DX: M54.2 Cervicalgia (principal); Z98.1 Arthrodesis status; M48.02 Spinal stenosis, cervical region; M25.78 Osteophyte, vertebrae
CPT/HCPCS: 72125

== ENCOUNTER 2023-10-17 18:21 | Observation (INO) | payer BC, MEDICAID, SELFPAY ==
[2023-10-17] VITALS (12 sets, daily range): BP systolic 130–174; BP diastolic 80–113; PULSE 79–91; RESP 16–20; TEMP 36.1–36.5; O2SAT 87–96; BMI 31.8
--- NOTE | 2023-10-17 | XR_ITS ---
WS: [id number] INTRAOPERATIVE TECHNIQUE: 3 Spot fluoroscopic images for intraoperative purposes. FLUOROSCOPY TIME: 23 seconds CLINICAL INFORMATION: JULISSA PICS FINDINGS: Intraoperative changes pedicle screw fixation L5-S1 with interbody fusion graft. Hardware appears in good position. IMPRESSION: Images obtained for intraoperative purposes.
[2023-10-17] MEDS: sodium chloride 0.9% 1,000 ML 30 ML IV (12:00)
[2023-10-17 12:09] LABS: Glucose Point of Care 165 mg/dL (70-110)
--- NOTE | 2023-10-17 13:49 | ANES.PREANE2 ---
Pre-Anesthetic Assessment Height/Weight: Height 1.78 m Weight 100.698 kg Temp Pulse Resp BP Pulse Ox O2 Del Method 97.3 F L 80 18 153/106 96 Room Air 10/17/23 11:48 10/17/23 11:48 10/17/23 11:48 10/17/23 11:48 10/17/23 11:48 10/17/23 11:49 Preop Diagnosis: Lumbar stenosis with neurogenic claudication Operation Date: 10/17/23 13:15 Proposed Procedures p Posterior Lumbar Interbody Fusion(Not Applicable) - Yonatan Morillo, DO Familial anesthetic complications: None Was Beta Steve taken within 24 hours: Yes Was Clonidine taken within 24 hours: N/A Last intake: Intake Last Liquid Date 10/16/23 Last Liquid Time 23:30 Last Solid Date 10/16/23 Last Solid Time 20:00 Social Tobacco (encouraged smoking cessation ) and No alcohol Exam alert, oriented x 3, clear to auscultation bilaterally and regular rate & rhythm Airway Mallampati: Class III Dentition: chipped and other (poor dentition, only 4 teeth) Pulmonary Chronic Obstructive Pulmonary Disease CV/HEM Coronary Artery Disease ([facility] place 2021 - denies chest pain, RITCHIE, syncopal episodes), Congestive Heart Failure and Myocardial Infarction GI Gastroesophageal Reflux Disease Metabolic Diabetes Mellitus Anesthetic Plan ASA status: 3 Anesthesia: General Risk of > 500 ml blood loss (7ml/kg in children): Yes, adequate IV access and fluids planned Medications/Allergies Home Medications Medication Instructions Recorded Confirmed Last Taken Type albuterol sulfate 90 mcg/actuation 2 puff inhalation Q4H PRN 11/28/21 10/16/23 Unknown History aerosol inhaler Shortness Of Breath glipizide 10 mg tablet 10 mg PO BID 11/28/21 10/17/23 10/15/23 History metformin 1,000 mg tablet 1,000 mg PO BID 11/28/21 10/17/23 10/15/23 History aspirin 81 mg chewable tablet 81 mg PO DAILY 30 days #30 tabs 12/01/21 10/16/23 10/10/23 Rx (Children's Aspirin) atorvastatin 40 mg tablet 80 mg (2 x 40 mg) PO QAM 30 days 12/01/21 10/16/23 10/16/23 Rx #30 tabs clopidogrel 75 mg tablet 75 mg PO DAILY 30 days #30 tabs 04/28/22 03/12/24 03/06/24 Rx furosemide 20 mg tablet 20 mg PO 0900 30 days #30 tabs 12/01/21 10/16/23 10/16/23 Rx nitroglycerin 0.4 mg sublingual 0.4 mg sublingual Q5M PRN chest 12/01/21 10/16/23 Unknown Rx tablet (Nitrostat) pain 30 days #30 tabs dapagliflozin propanediol 5 mg 10 mg PO DAILY 01/13/22 10/16/23 10/16/23 History tablet (Farxiga) amlodipine 2.5 mg tablet 2.5 mg PO DAILY 07/14/22 10/16/23 10/16/23 History docusate sodium 100 mg capsule 100 mg PO DAILY PRN Constipation 07/14/22 10/16/23 01/07/23 History (Stool Softener) lisinopril 10 mg tablet 30 mg PO DAILY 07/14/22 10/16/23 10/16/23 History intraoperative neuromonitoring #1 ea 12/29/22 10/05/23 Unknown Rx carvedilol 6.25 mg tablet 6.25 mg PO BID@0900,2100 #180 tabs 03/30/23 10/17/23 10/17/23 Rx cholecalciferol (vitamin D3) 125 50,000 unit PO .weekly 03/30/23 10/16/23 Unknown History mcg (5,000 unit) tablet (Vitamin D3) dulaglutide 0.75 mg/0.5 mL 0.75 mg SUBCUT .weekly 03/30/23 10/17/23 10/09/23 History subcutaneous pen injector (Trulicity) pregabalin 50 mg capsule (Lyrica) 50 mg PO BID 04/12/23 10/16/23 10/16/23 History fenofibrate nanocrystallized 145 145 mg PO DAILY 10/11/23 10/16/23 10/16/23 History mg tablet omeprazole 40 mg capsule,delayed 40 mg PO DAILY 10/11/23 10/16/23 10/16/23 History release Allergies Allergy/AdvReac Type Severity Reaction Status Date / Time No Known Allergies Allergy Verified 10/17/23 11:39 Current Medications Generic Name Dose Route Start Last Admin Trade Name Freq PRN Reason Stop Dose Admin Sodium Chloride 1,000 mls @ 30 mls/hr 10/17/23 11:45 10/17/23 12:00 Sodium Chloride 0.9% IV 10/18/23 11:44 30 mls/hr .Q24H GUS Administration PFSH Anesthesia Medical History Tobacco dependence Dyslipidemia CHF (congestive heart failure), NYHA class III CAD (coronary artery disease) Lumbosacral radiculopathy Low back pain radiating to both legs DDD (degenerative disc disease), lumbosacral Uncontrolled hypertension Chest pain Obesity COPD (chronic obstructive pulmonary disease) Diabetes Hypertension Elevated troponin Abnormal ECG No pertinent family history COPD (chronic obstructive pulmonary disease) Hypertension Surgical History Hx of heart artery stent Family History Brother Cancer Sister Cancer Father Diabetes Hypertension Stroke Mother Diabetes Social History Smoking and tobacco/nicotine status: never used tobacco/nicotine Data Anesthesia Blood Bank 10/17/23 11:55 Blood Type O Positive Rho(D) Type Rh positive Antibody Screen Negative Cardiac Studies: Echocardiogram 08/14/22
--- NOTE | 2023-10-17 15:08 | W.PM.OPSUD ---
Surgery/Procedure H&P Update DATE OF PROCEDURE: October 17, 2023 DATE H&P PERFORMED: 10/11/23 H&P UPDATE INFORMATION: I have reviewed H&P completed within last 30 days, I have examined patient prior to procedure and No changes to prior documentation PREOP DIAGNOSIS: Lumbar stenosis with neurogenic claudication PLANNED PROCEDURE: Operation Date: 10/17/23 13:15 Proposed Procedures p Posterior Lumbar Interbody Fusion(Not Applicable) - Yonatan Morillo DO
[2023-10-17] MEDS: ceFAZolin 2,000 MG in sodium chloride 0.9% (plus) 50 ML 100 MG IV ×2 (15:54→23:19)
[2023-10-17] MEDS: lidocaine-epi 1% 20 mL INJ INJECTION (16:30)
[2023-10-17] MEDS: vancomycin 1,000 MG SDV 1000 MG XX (16:30)
[2023-10-17] MEDS: heparin, porcine 1,000 unit/mL INJ 10 mL 10000 UNIT IRRIGATION (16:30)
--- NOTE | 2023-10-17 18:18 | PM.OP ---
Operative Report Date of procedure: October 17, 2023 Pre-op diagnosis: Lumbar stenosis with neurogenic claudication Post-op diagnosis: same Procedure done: 1. L5/S1 Interbody fusion with posterolateral fusion 2. Instrumentation L5/S1 3. Cage at L5/S1 4. L5-S1 laminectomy with facetectomies 5. use of autograft from same incision 6. allograft 7. Bone marrow aspirate from right iliac crest 8. Use of computer navigation stereotactic for spine Surgeon: Yonatan Morillo DO Estimated blood loss (mL): 50 Procedure: 1. L5/S1 Interbody fusion with posterolateral fusion 2. Instrumentation L5/S1 3. Cage at L5/S1 4. L5-S1 laminectomy with facetectomies 5. use of autograft from same incision 6. allograft 7. Bone marrow aspirate from right iliac crest 8. Use of computer navigation stereotactic for spine Patient is brought to the operative suite. After undergoing anesthesia, the patient had neuro monitoring attached. Patient was then placed in the prone position on the Fer table. All areas of impingement were well-padded. Patient was then prepped and draped in the normal sterile fashion. Skin incision was then made over the L5-S1. Subperiosteal dissection was made out to the transverse processes of L5 and S1 bilaterally. The [employer] bone marrow aspirate kit was used to aspirate bone marrow aspirate. This was done by using the sharp probe to open up the bone. Aspiration was performed and then the blunt probe was then used to dissect down to through the bone tunnel. An aspirating well drawn back a millimeter approximately 20 cc of bone marrow aspirate was used. Admixed with the allograft and autograft bone that will be used. Next the fiducial for computer navigation was attached to the patient. This is done by putting 2 pins into the right iliac crest. The spleen is later removed at the end of the case. The fiducial was went to the computer. Serial brought in and the information from serum was then loaded in the computer. This information will later be used for placing the pedicle screws. The technique for placing the pedicle screws was to use a drill followed by the gearshift probe linked to computer navigation. Followed by the ball probe to feel the superior inferior medial lateral humphries of the pedicles. Then placement of the screws linked to computer navigation. Was done at each pedicle. Screws were placed at L5 bilaterally and S1 bilaterally. Next attention was brought to performing the laminectomy ofL5. This was done using the high-speed bur Kerrisons and curettes. Once the lamina was removed and then attention was brought to performing a partial facetectomy on the contralateral side. This was done again using the high-speed bur curettes and Kerrisons. The ligamentum flavum was taken down bilaterally from L5 to S1. Attention was then brought to the facet on the ipsilateral side. The facet was taken down. The S1 nerve was decompressed as it passed around the S1 pedicle. The laminectomy was done for purposes of decompressing the nerve as well as placement of the cage. The L5 nerve was identified as it traversed through the L5/S1 foramen. The thecal sac was identified and retracted. The L5/S1 disc space was identified. Using an osteotome under C-arm guidance. The disc space was calcified.. And then sequential laura were placed. The first shaver was a 6 and the last shaver was a 7. Using a pituitary and down going curette the endplates were scraped and disc material was removed from the space. Once adequate decompression of the disc base was felt to be had. Osteoamp sponge was packed into the anterior aspect of the disc base. Then a size 8 cage from [employer] was placed after packing osteoamp into the cage. While placing the cage the thecal sac and S1 nerve was protected. C arm was used to ensure that the cages placed in the appropriate position. Attention was then brought to attaching the rods to the screws placed in the L5 bilaterally and S1 bilaterally. Caps were torqued into position. Locking the construct in place. Wound was copiously irrigated and then attention was brought to decorticating the facets and transverse processes laterally. Bone that was taken down from the lamina was used along with osteoamp fibers and sponges were packed into the lateral gutters along the facet joints. This was done bilaterally. Wound was then closed in a layered fashion starting with the thoracolumbar fascia. 0-vicryl was used the sub cutaneous tissue was closed with 2-0 vicryl and skin with 4-0 monocryl. Glue was then used to seal the skin and a steril dressing was applied. Patient was then placed in the supine position. The endotracheal tube was removed and patient was transferred to the PACU in stable condition.
[2023-10-17] MEDS: HYDROcodone-acetaminophen 5-325 mg Tablet PO (20:12)
[2023-10-17] MEDS: carvedilol 6.25 mg Tablet PO (20:13)
[2023-10-17] MEDS: lactated ringers 1,000 ML 90 ML IV (20:13)
[2023-10-18] VITALS: BP 145/91; PULSE 91; RESP 17; TEMP 36.2; O2SAT 92
[2023-10-18] MEDS: nicotine 21 mg Patch 1 PATCH TRANSDERMA ×2 (00:28→08:24)
[2023-10-18] MEDS: HYDROcodone-acetaminophen 5-325 mg Tablet PO ×2 (00:30→05:03)
[2023-10-18] MEDS: ketorolac 30 mg/mL INJ IVP ×2 (02:30→08:33)
[2023-10-18 04:13] VITALS: BP 137/93; PULSE 86; RESP 18; TEMP 37.1; O2SAT 93
[2023-10-18] MEDS: atorvastatin 40 mg Tablet 80 MG PO (05:03)
[2023-10-18] MEDS: lactated ringers 1,000 ML 90 ML IV (06:17)
[2023-10-18 06:30] VITALS: BP 143/95; PULSE 82; RESP 17; TEMP 36.3; O2SAT 91
[2023-10-18 06:45] LABS: Glucose Point of Care 277 mg/dL (70-110)
[2023-10-18 07:29] VITALS: BP 144/93; PULSE 87; RESP 16; TEMP 36.6; O2SAT 95
--- NOTE | 2023-10-18 07:49 | PM.DCS ---
Discharge Providers Date of Admission: 10/17/23 18:21 Date of Discharge: October 18, 2023 Attending Provider at Admission: Yonatan Morillo DO Attending Provider at Discharge: Yonatan Morillo DO Primary Care Provider: Britni Moeller NP Reason for Visit Reason for Visit: M48.062 Physical Exam Narrative: Patient is doing well sitting up watching his phone and the eating breakfast. Pain is controlled. Urinary Catheter Management: [place]: Cath Placed During This Visit: yes, but has since been removed by the nurse Reason for Continuing Indwelling Catheter: Decision to DC Catheter Urinary Catheter Date of Insertion: 10/17/23 Urinary Catheter Time of Insertion: 16:05 Date Urinary Catheter Removed: 10/18/23 Time Urinary Catheter Discontinued: 06:20 Discharge Data Studies Completed and Pending Pending at discharge Category Date Time Status XR lumbar spine 2-3V* [id number] Routine Exams 10/17/23 00:00 Taken Laboratory Results POC Glucose 277 mg/dL (70-110) H 10/18/23 06:40 Blood Type O Positive 10/17/23 11:55 Rho(D) Type Rh positive 10/17/23 11:55 Antibody Screen Negative 10/17/23 11:55 Vitals Last Vital Signs Temp 97.9 F 10/18/23 07:29 Pulse 87 10/18/23 07:29 Resp 16 10/18/23 07:29 BP 144/93 10/18/23 07:29 Pulse Ox 95 10/18/23 07:29 O2 Del Method Room Air 10/18/23 07:29 O2 Flow Rate 4 10/17/23 18:55 Discharge Plan Discharge Patient Disposition: Home Condition: Stable Prescriptions: New hydrocodone-acetaminophen 5-325 mg tablet 1 - 2 tab PO .Q4-6H Qty: 40 0RF Continued carvedilol 6.25 mg tablet 6.25 mg PO BID@0900,2100 Qty: 180 2RF Farxiga 5 mg tablet 10 mg PO DAILY amlodipine 2.5 mg tablet 2.5 mg PO DAILY lisinopril 10 mg tablet 30 mg PO DAILY omeprazole 40 mg capsule,delayed release(DR/EC) 40 mg PO DAILY fenofibrate nanocrystallized 145 mg tablet 145 mg PO DAILY (DME) intraoperative neuromonitoring See Rx Instructions .Route .MEDSUPPLY Qty: 1 0RF Rx Instructions: As directed glipizide 10 mg tablet 10 mg PO BID metformin 1,000 mg tablet 1,000 mg PO BID Hold Instructions: Resume on 12/04/21. albuterol sulfate 90 mcg/actuation HFA aerosol inhaler 2 puff INHALATION Q4H PRN (Reason: Shortness Of Breath) atorvastatin 40 mg Tablet 80 mg PO QAM 30 Days Qty: 30 3RF clopidogrel 75 mg Tablet 75 mg PO DAILY 30 Days Qty: 30 3RF aspirin [Children's Aspirin] 81 mg Tablet,Chewable 81 mg PO DAILY 30 Days Qty: 30 3RF furosemide 20 mg Tablet 20 mg PO 0900 30 Days Qty: 30 3RF nitroglycerin [Nitrostat] 0.4 mg tablet, sublingual 0.4 mg sublingual Q5M PRN (Reason: chest pain) 30 Days Qty: 30 3RF Rx Instructions: do not exceed 3 doses per episode Stool Softener 100 mg capsule 100 mg PO DAILY PRN (Reason: Constipation) cholecalciferol (vitamin D3) [Vitamin D3] 125 mcg (5,000 unit) tablet 50,000 unit PO .weekly Trulicity 0.75 mg/0.5 mL pen injector 0.75 mg SUBCUT .weekly pregabalin [Lyrica] 50 mg capsule 50 mg PO BID Discharge Orders: Discharge Order (Routine); Ordered 10/18/23 Ordered By: Yonatan Morillo Discharge Diet: Advance as tolerated Discharge Activity: Limit activity as instructed Patient Instructions: Opioid Safety Activity Restrictions/Additional Instructions: Thank you for [facility] for your care! The following is a list of instructions, from your provider, to follow upon your discharge to ensure you have the optimal recovery from your recent injury orsurgery. Follow-up care is a beach part of your treatment and safety. Be sure to make and go to all appointments, and call your doctor if you are having problems. If you do not already have a follow-up appointment made, call Dr. Morillo office in the next 1-3 days to make follow up appointment for 1 weeks at [phone]. It is also a good idea to know your test results and keep a list of the medicines you take. Medications will be prescribed for you at your provider's discretion. These medications are to be used as instructed; if they are taken more often that prescribed they will not be refilled early and in most cases will not be refilled at all. > When a refill is needed,you should contact michel [facility]ard 2-3 business days before your prescription runs out. Medications will NOT be refilled by [facility] [employer] [facility] providers after hours! > Many pain medications contain Tylenol (Acetaminophen). Do not consume more than 4,000 mg of Tylenol per day in total with any combination ofmedications. > Pain medications can cause constipation. Please use an over the counter stool softener as directed, while taking pain medications. Consulty our local pharmacist with questions or recommendations on stool softeners. If constipation persists, contact our office or your primary care provider. > While under our care,you are not to receive pain medications or other controlled substances from any other provider unless our office is notified and approves. Any attempts to do so will result in refusal to prescribe any further pain medications and possible dismissal from our practice. ? Your wound and/or dressing should remain clean and dry for 7 days after surgery. On postoperative day 7 in the clinic. It is okay to shower and get the incision wet. Pad dry afterwards. No further dressing should be required from that point on. Do not put any creams or ointments on theincision > It is normal for there to be a small amount of discharge (bloody or blood tinged) present from a surgical wound for the first 1-3days. > The wound should be examined twice a day for signs of infection. Mild redness or bruising is to be expected but indications that an infection maybe starting would include; An increase in redness, swelling, or discharge, a foul odor present around the incision, and/or a fever greater than 101 ?F ? Showering is permitted, however we ask that you do not take a bath, sit in a whirlpool / Jacuzzi, or go swimming for 1 month. For only the first 2 days after surgery, lt wilt be necessary for you to cover your wound/dressing with plastic and tape to keep it dry. ? Walking is essential for the healing process after surgery. We would like you to slowly advance your walking. This should be done on relatively flat clear ground (inside or out) or can be done on a treadmill. Remember this goal does not have to happen all at once, slowly increase your distance and duration. This can be broken into more more than one walk per day as tolerated. Patients who walk as directed after surgery rarely require Physical Therapy. In the unlikely event this issue arises your provider will direct hospital staff to make the appropriate arrangements. ? No lifting over 5 pounds {a gallon of milk) or bending/twisting until further notice. Each of these activities places an unnecessary amount of stress onto the body and can impede the delicate healing process. > Instead of bending at the waist, keep your back straight and bend at the knees. > Instead of twisting your torso, keep your back straight and turn your entire body with your feet. ? You may sleep in any position which makes you comfortable. Many patients find comfort sleeping in a reclining chair. It is not abnormal to have difficulty sleeping for the first several weeks following your surgery. We recommend trying Benadry! or Tylenol PM as directed to help with your sleeping difficulties. Both medications are over the counter and available withoutprescription. ? NO SMOKING!!! Smoking dramatically increases the probability of developing postoperative wound infections. ? Common complaints after lumbar and/or thoracic spine surgery include, but are not limited to: numbness and/or tingling in the legs, pain around the incision and surrounding tissues, muscle spasms, or stiffness of the middle to low back. Contact our office if these symptoms persist or if an acute change occurs. ? No driving for the first 3-5days, and not while taking narcotics until seen at your follow-up appointment and cleared. There are no restrictions for riding on short trips, however if you take a longer trip, arrangements should be made to make regular stops to get out of the vehicle and stretch . ? Swelling is an unfortunate event that will take place with any surgery and is the primary source of your postoperative discomfort. While walking and regular approved activities helps control inflammation, there are additional steps you can take to minimizeswelling. > Place ice over the surgical site and surrounding tissue for twenty minutes, followed by applying a low/medium heat (heating pad) for an additional twenty minutes every 1-2 hours as needed for painrelief. > You may use of over the counter anti-inflammatory medications (Ibuprofen, Motrin, Aleve, Advil, etc) as directed on the package label. These types of medicines wm significantly reduce the amount of discomfort you experience after surgery from swelling. It should be noted that if you have and allergy to any of these medications, or a history of ulcers or kidney disease you should consult you primary care provider prior to starting these medications. Discharge Attestations Time Spent in Discharge Care*: less than 30 min Quality Metrics Clinical Quality Measures [ No reported AMI, CVA or VTE this stay] Coding Level of Care Code Acute Code for g Francia
[2023-10-18] MEDS: ceFAZolin 2,000 MG in sodium chloride 0.9% (plus) 50 ML 100 MG IV (07:57)
[2023-10-18] MEDS: pregabalin 50 mg Capsule PO (08:00)
[2023-10-18] MEDS: metformin 500 mg Tablet 1000 MG PO (08:00)
[2023-10-18] MEDS: lisinopril 20 mg Tablet 30 MG PO (08:01)
[2023-10-18] MEDS: docusate sodium 100 mg Capsule PO (08:01)
[2023-10-18] MEDS: fenofibrate 145 mg Tablet PO (08:01)
[2023-10-18] MEDS: amlodipine 5 mg Tablet 2.5 MG PO (08:01)
[2023-10-18] MEDS: FUROsemide 20 mg Tablet PO (08:01)
[2023-10-18] MEDS: carvedilol 6.25 mg Tablet PO (08:01)
[2023-10-18] MEDS: pantoprazole DR 40 mg Tablet PO (08:01)
[2023-10-18] MEDS: aspirin 81 mg Chew Tablet PO (08:01)
[2023-10-18] MEDS: ergocalciferol (vitamin D2) 50,000 Unit Capsule 50000 UNIT PO (08:24)
[2023-10-18 09:37] VITALS: PULSE 85; RESP 16; O2SAT 95
[2023-10-18 10:51] LABS: Glucose Point of Care 295 mg/dL (70-110)
--- NOTE | 2023-10-18 11:28 | PC.SOCIAL ---
Patient requesting a walker, however his insurance just paid for a WC 6 months ago, so they wont cover a walker. CM [facility]
== END 2023-10-18 10:53 | disposition home or self-care (01) ==
LOC: MEDSURG 18:22
PROVIDERS: Admitting Provider Orthopaedic Surgery; PCP Nurse Practitioner Family; Visit Provider Orthopaedic Surgery
PROC: (CPT 22612; principal; 2023-10-17 13:15)
DX: M48.062 Spinal stenosis, lumbar region with neurogenic claudication (principal); J44.9 Chronic obstructive pulmonary disease, unspecified; I25.10 Atherosclerotic heart disease of native coronary artery without angina pectoris; I11.0 Hypertensive heart disease with heart failure; I50.9 Heart failure, unspecified; I25.2 Old myocardial infarction; K21.9 Gastro-esophageal reflux disease without esophagitis; E11.9 Type 2 diabetes mellitus without complications; Z79.84 Long term (current) use of oral hypoglycemic drugs; E78.5 Hyperlipidemia, unspecified; E66.9 Obesity, unspecified; Z68.33 Body mass index [BMI] 33.0-33.9, adult; Z95.5 Presence of coronary angioplasty implant and graft
CPT/HCPCS: 20930; 20936; 20939; 22633; 22840; 22853; 61783; 63052; 36415; 36416; 51702; 72100; 76000; 82962; 86850; 86900; 97116; 97161; C1713; G0378; J0690; J1100; J1170; J1644; J1885; J2405; J2704; J3010; J3370; J3490; J7030; J7120

== ENCOUNTER → 2023-11-29 10:30 | Outpatient (BNVA) | payer BC, MEDICAID, SELFPAY | PROVIDERS: PCP Nurse Practitioner Family; Visit Provider Orthopaedic Surgery | DX: Z98.1 Arthrodesis status (principal) | CPT/HCPCS: 72100 ==

== ENCOUNTER → 2024-01-10 12:52 | Outpatient (BNVA) | payer BC, MEDICAID, SELFPAY | PROVIDERS: PCP Nurse Practitioner Family; Visit Provider Orthopaedic Surgery | DX: Z98.1 Arthrodesis status | CPT/HCPCS: 72100 ==

== ENCOUNTER → 2024-04-15 11:07 | Outpatient (BNVA) | payer BC, MEDICAID, SELFPAY | PROVIDERS: PCP Nurse Practitioner Family; Visit Provider Orthopaedic Surgery | DX: Z98.1 Arthrodesis status (principal) | CPT/HCPCS: 72100 ==

== ENCOUNTER 2024-05-09 06:00 | Outpatient (CLI) | payer MEDICARE, MEDICAID, SELFPAY | END 2024-05-09 23:59 | disposition home or self-care (01) | LOC: SPT 05-12 10:36 | PROVIDERS: Visit Provider Nurse Practitioner | DX: Z46.89 Encounter for fitting and adjustment of other specified devices (principal); M25.562 Pain in left knee | CPT/HCPCS: 20610; J1100; J2795; J3301; L1812 ==

== ENCOUNTER → 2024-05-09 10:48 | Outpatient (BNVA) | payer MEDICARE, MEDICAID, SELFPAY | PROVIDERS: PCP Nurse Practitioner Family; Visit Provider Nurse Practitioner | DX: M25.562 Pain in left knee (principal); M17.12 Unilateral primary osteoarthritis, left knee | CPT/HCPCS: 73560; 73565 ==

== ENCOUNTER → 2024-08-08 11:13 | Outpatient (BNVA) | payer MEDICARE, MEDICAID, SELFPAY | PROVIDERS: Visit Provider Nurse Practitioner | DX: M17.12 Unilateral primary osteoarthritis, left knee (principal) | CPT/HCPCS: 20610; 99213; J1100; J2795; J3301 ==

== ENCOUNTER → 2024-09-12 09:46 | Outpatient (BNVA) | payer MEDICARE, MEDICAID, SELFPAY | PROVIDERS: PCP Nurse Practitioner Family; Visit Provider Internal Medicine | DX: I25.10 Atherosclerotic heart disease of native coronary artery without angina pectoris (principal); I11.0 Hypertensive heart disease with heart failure; I50.22 Chronic systolic (congestive) heart failure; E78.5 Hyperlipidemia, unspecified; E11.9 Type 2 diabetes mellitus without complications; M48.062 Spinal stenosis, lumbar region with neurogenic claudication; F17.200 Nicotine dependence, unspecified, uncomplicated | CPT/HCPCS: 99214 ==

== ENCOUNTER → 2024-10-16 13:06 | Outpatient (BNVA) | payer MEDICARE, MEDICAID, SELFPAY | PROVIDERS: PCP Nurse Practitioner Family; Visit Provider Orthopaedic Surgery | DX: Z98.1 Arthrodesis status (principal) | CPT/HCPCS: 72050; 72100; 99213 ==

== ENCOUNTER 2024-11-07 12:20 | Outpatient (CLI) | payer MEDICARE, MEDICAID, SELFPAY ==
--- NOTE | 2024-11-07 12:25 | USCV_ITS ---
Juan Hernandez Age: 49 Gender: M : 1975 Exam Date: 11/07/2024 12:56 Ordering Phys: Calixto Arizmendi M.D ([email or web address]) Technologist: RETA Exam Location: [facility] [place] Indication: SoB, CP BP: 131 / 87 HR: 89 Rhythm: Sinus Technical Quality: Adequate MEASUREMENTS (Male / Female) Normal Values 2D ECHO LV Diastolic Diameter PLAX 5.7 cm 4.2 - 5.9 / 3.9 - 5.3 cm IVS Diastolic Thickness 1.2 cm 0.6 - 1.0 / 0.6 - 0.9 cm IVS Systolic Thickness 1.9 cm LVPW Diastolic Thickness 0.9 cm 0.6 - 1.0 / 0.6 - 0.9 cm LVPW Systolic Thickness 1.5 cm LVOT Diameter 2.1 cm LV Ejection Fraction 2D Teich 49.1 % LV Ejection Fraction MOD 4C 53.7 % LV Ejection Fraction MOD 2C 65.1 % LV Ejection Fraction 2C AL 67.2 % LA Diameter 3.2 cm RA Systolic Volume 4C AL 26.7 ml RA Systolic Volume 4C MOD 26.0 ml LA Sys Volume AL 40.3 cm cubed LA Sys Volume Index AL 17.9 cm cubed/m squared Aorta at Sinotubular Diameter 3.3 cm M-MODE LA Ao Ratio MM 1.0 AV Cusp Separation MM 1.0 cm DOPPLER AV Peak Velocity 117.0 cm/s LVOT Peak Velocity 99.0 cm/s AV Area Cont Eq vti 2.5 cm squared AV Area Cont Eq pk 2.9 cm squared MV Peak Velocity 85.0 cm/s MV Area PHT 8.1 cm squared Mitral E to A Ratio 0.6 TR Peak Velocity 95.0 cm/s TR Peak Gradient 3.6 mmHg TV Peak E Velocity 91.0 cm/s PV Peak Velocity 91.0 cm/s FINDINGS Left Ventricle LV systolic function is normal with EF of 50-55%. No regional wall motion abnormalities. Grade 1 diastolic dysfunction Right Ventricle Normal in size and function Right Atrium Normal in size Left Atrium Normal in size Mitral Valve Structurally normal. Mild mitral regurgitation. Aortic Valve Grossly normal. No significant stenosis or regurgitation Tricuspid Valve Insufficient TR jet to calculate RVSP Pulmonic Valve Not well visualized Pericardium Normal Aorta Normal in size IVC Not visualized. CONCLUSIONS LV systolic function is normal with EF of 55-60% Grade 1 diastolic dysfunction Mild mitral regurgitation Compared to prior echocardiogram from 2022, LV systolic function appears to have improved. Calixto Arizmendi MD (Electronically Signed) Final Date: 23 November 2024 23:03 S
== END 2024-11-07 12:21 | disposition home or self-care (01) ==
PROVIDERS: PCP Nurse Practitioner Family; Visit Provider Internal Medicine
DX: R07.9 Chest pain, unspecified (principal); R06.02 Shortness of breath; R93.1 Abnormal findings on diagnostic imaging of heart and coronary circulation; I34.0 Nonrheumatic mitral (valve) insufficiency
CPT/HCPCS: 93306

== ENCOUNTER → 2024-11-21 08:33 | Outpatient (BNVA) | payer MEDICARE, MEDICAID, SELFPAY | PROVIDERS: PCP Nurse Practitioner Family; Visit Provider Nurse Practitioner | DX: M17.12 Unilateral primary osteoarthritis, left knee (principal) | CPT/HCPCS: 20610; J1100; J2795; J3301; J9999 ==

== ENCOUNTER → 2025-03-06 10:04 | Outpatient (BNVA) | payer MEDICARE, MEDICAID, SELFPAY | PROVIDERS: PCP Nurse Practitioner Family; Visit Provider Nurse Practitioner | DX: M17.12 Unilateral primary osteoarthritis, left knee (principal) | CPT/HCPCS: 20610; 99024; J1100; J2795; J3301; J9999 ==

== ENCOUNTER → 2025-06-23 14:11 | Outpatient (BNVA) | payer MEDICARE, SELFPAY | PROVIDERS: PCP Nurse Practitioner Family; Visit Provider Internal Medicine | DX: I25.10 Atherosclerotic heart disease of native coronary artery without angina pectoris (principal); I11.0 Hypertensive heart disease with heart failure; I50.22 Chronic systolic (congestive) heart failure | CPT/HCPCS: 99214 ==